=== PATIENT | female | born 1965 | race Caucasian/White ===

== ENCOUNTER 2018-07-08 07:44 | Emergency (ER) | payer OTHER ==
--- OUTSIDE RECORDS SUMMARY | 2018-07-08 07:46 | XMS REPORT | Clinical Summary ---
:1965 Author Organization [facility] Address [address] [place] [address] Care Team Providers Name Role Phone Martinez Givens MD Primary Care Provider Unavailable Allergies Active Allergy Reactions Severity Noted Date Comments Adhesive Tape-Silicones 05/30/2016 Clindamycin GI Intolerance 05/30/2016 Nausea / Vomiting Current Medications Prescription Sig. Disp. Refills Start Date End Date Status DHCODEINE Take 16-320 Active BT/ACETAMINOPHN/CAFF mg by mouth 3 (TREZIX ORAL) (three) times a day. lisinopril TAKE ONE 30 tablet 1 02/05/2017 Active (PRINIVIL,ZESTRIL) 5 TABLET BY mg tablet MOUTH DAILY furosemide (LASIX) Take 1 tablet 30 tablet 1 01/08/2018 Active 40 mg tablet (40 mg total) by mouth daily. metoprolol succinate Take 1 tablet 90 tablet 3 02/12/2018 02/12/2019 Active XL (TOPROL-XL) 100 (100 mg mg 24 hr total) by tabletIndications: mouth daily. Chronic combined systolic and diastolic CHF (congestive heart failure) (HCC) spironolactone Take 1 tablet 90 tablet 3 02/12/2018 02/12/2019 Active (ALDACTONE) 25 MG (25 mg total) tabletIndications: by mouth Chronic combined daily. systolic and diastolic CHF (congestive heart failure) (HCC) spironolactone TAKE 1/2 15 tablet 2 02/05/2017 01/08/2018 Discontinued (ALDACTONE) 25 MG TABLET BY tablet MOUTH DAILY furosemide (LASIX) TAKE ONE 30 tablet 1 02/05/2017 01/08/2018 Discontinued 40 mg tablet TABLET BY MOUTH ONCE DAILY metoprolol succinate TAKE ONE 30 tablet 1 02/05/2017 01/08/2018 Discontinued XL (TOPROL-XL) 50 mg TABLET BY 24 hr tablet MOUTH DAILY spironolactone Take 0.5 15 tablet 2 01/08/2018 02/12/2018 Discontinued (ALDACTONE) 25 MG tablets (12.5 tablet mg total) by mouth daily. metoprolol succinate Take 1 tablet 30 tablet 1 01/08/2018 02/12/2018 Discontinued XL (TOPROL-XL) 50 mg (50 mg total) 24 hr tablet by mouth daily. Active Problems Patient Care Coordination Note No echocardiogram Last Visit - 07/18/2016 HPI: Ms. Grace was recently diagnosed with HF after 6 months of progressive GRANADOS. She was admitted to [facility] 12/23/[address] Obie Buckley consulted me for management of her HF. He did a coronary nika ogram showing no significant CAD, RHC showed normal hemodynamics. She is being evaluated for a breast mass with FNA negative for malignancy but planning on undergoing excisional biopsy due to high radiographic suspicion. She has not been taking her HF medications regularly. Assessment / Plan 1. Combined systolic and diastolic dysfunction - Patient with poor compliance with medications. I reniforced stric compliance with HF medications except for lasix since she is euvolemic without it. NYHA II. Euvolemic. 2. Persistent breast nodularity - Undergoing excisional biopsy. Should have low risk of HF events periprocedurally. No further cardiac testing needed. She describes possible history of pulmonary fibrosis. May need eval prior. 3. Cardiomyopathy - Continue OMT. Problem Noted Date Severe major depression with psychotic features (HCC) 07/03/2017 Essential hypertension 07/03/2017 Chronic combined systolic and diastolic CHF (congestive heart failure) 2016 (HCC) Encounters Date Type Specialty Care Team Description 02/12/2018 Office Visit Cardiology Junior Mak, Chronic combined systolic and diastolic CHF (congestive heart failure) (Primary Dx); Essential hypertension; Severe major depression with psychotic features 01/08/2018 Refill Cardiology Junior Mak, Med Refill after 07/07/2017 Family History Medical History Relation Name Comments Cancer Maternal Aunt Cancer Maternal Grandfather Heart disease Maternal Grandfather Diabetes Maternal Grandmother Cancer Mother Relation Name Status Comments Maternal Aunt Maternal Grandfather Maternal Grandmother Mother Social History Tobacco Use Types Packs/Day Years Used Date Former Smoker Cigarettes 0.25 10 Quit: 12/31/2015 Smokeless Tobacco: Never Used Comments: QUIT-12/2014 Alcohol Use Drinks/Week oz/Week Comments No Sex Assigned at Date Recorded Not on file Last Filed Vital Signs Vital Sign Reading Time Taken Blood Pressure 125/66 02/12/2018 4:39 PM CDT Pulse 97 02/12/2018 4:39 PM CDT Temperature - - Respiratory Rate - - Oxygen Saturation - - Inhaled Oxygen Concentration - - Weight 78 kg (172 lb) 02/12/2018 4:39 PM CDT Height 165.1 cm (5' 5") 02/12/2018 4:39 PM CDT Body Mass Index 28.62 02/12/2018 4:39 PM CDT Plan of Treatment Date Type Specialty Care Team Description 08/27/2018 Office Visit Cardiology Junior Mak MD [address] [address] Health Maintenance Due Date Last Done Comments CERVICAL CANCER SCREENING 1988 COLON CANCER SCREENING 2017 SHINGRIX VACCINE (#1) 2017 INFLUENZA VACCINE 04/24/2018 BREAST CANCER SCREENING 06/07/2018 06/07/2016, 05/10/2016, 05/10/2016 Results Not on fileafter 07/07/2017 Insurance Payer Benefit Plan / Group Subscriber ID Type Phone Address MEDICARE MEDICARE PART A AND B xxxxxxxxxxx Medicare [place], [place]
[2018-07-08 08:08] LABS: Absolute Lymphocytes (CBC) 2.2 K/uL (0.7-4.9); Absolute Monocytes 0.7 K/uL (0.1-1.3); Absolute Neutrophil 6.6 K/uL (1.8-8.0); Basophils % 0.7 % (0-1.3); Eosinophils % 2.2 % (0-4.4); Hematocrit 37.4 % (36.0-45.0); Lymphocytes % 22.4 % (15.3-44.8); MPV 9.5 fL (7.6-11.3); Monocytes % 7.3 % (3.3-12.3); RBC Red Blood Cell Count 4.11 M/uL (3.86-4.86)
[2018-07-08 08:11] LABS: Protime INR 1.1
[2018-07-08] MEDS ORDERED: ENOXAPARIN 80 MG/0.8 ML SQ ONE (08:16)
[2018-07-08] MEDS ORDERED: FENTANYL CITR 100 MCG/2 ML ONE (08:16)
[2018-07-08] MEDS ORDERED: ONDANSETRON 4 MG/2 ML VIAL ONE (08:21)
--- NOTE | 2018-07-08 08:24 | RAD REPORT ---
EXAM DESCRIPTION: RAD - Chest Single View - 07/08/2018 8:13 am CLINICAL HISTORY: Chest pain COMPARISON: November 29 TECHNIQUE: AP portable chest image was obtained 0806 hours . FINDINGS: No focal consolidation or mass. Interstitial markings are prominent, increased over compar kevon. Cardiomegaly is present increased slightly from comparison. Vasculature is mildly prominent. No pneumothorax or large pleural effusion. No acute bone finding. Postsurgical changes are noted to the proximal right humerus. No acute aortic findings suspected. IMPRESSION: CHF/volume overload pattern increased compared to November 29 study.
[2018-07-08 08:29] LABS: Albumin 3.4 g/dL (3.4-5.0); Bilirubin Direct 0.2 mg/dL (0-0.2); Bilirubin Total 0.8 mg/dL (0.2-1.0); Magnesium 2.2 mg/dL (1.8-2.4); Potassium 4.3 mmol/L (3.5-5.1); Protein, Total 7.4 g/dL (6.4-8.2)
[2018-07-08 08:32] LABS: Troponin (Emerg Dept Use Only) 21.7 ng/mL (0.0-0.045)
--- NOTE | 2018-07-08 08:51 | ER ---
Nurse's Notes [facility] Name: Reta Anderson Age: 52 yrs Sex: Female : 1965 Arrival Date: 07/08/2018 Time: 07:48 Bed 5 Private MD: Diagnosis: Chest pain, unspecified;Cardiomyopathy;Non-ST elevation (NSTEMI) myocardial infarction;Unspecified combined systolic (congestive) and diastolic (congestive) heart failure;Hypotension Presentation: 07/08 07:40 Presenting complaint: EMS states: CP x 1 day/described as squeezing/grabbing, c/o sv nausea, stress, SOB, anxiety, stomach bloated/burning. ASA 324 mg PO, Nitro x 1 BP pre 106/72, post 98/62, Fentanyl 75 mcg, 20G R FA, ST w/BBB. c/o right shoulder blade swelling. Pt reports taking Hudson Fri \\T\\ Sat for shoulder pain and has had nausea since then. Transition of care: patient was not received from another setting of care. Onset of symptoms was July 07, 2018 at 14:00. Care prior to arrival: IV initiated. 20 GA, in the right forearm. 07:40 Method Of Arrival: EMS: [facility] sv 07:40 Acuity: CASSANDRA 2 sv 07:55 Risk Assessment: Do you want to hurt yourself or someone else? Patient reports no aa5 desire to harm self or others. 07:56 Initial Sepsis Screen: Does the patient meet any 2 criteria? HR > 90 bpm. Yes Does the sv patient have a suspected source of infection? No. Patient's initial sepsis screen is negative. 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 - Ebola Screening: : No symptoms or risks identified at this time. Screenin:56 Abuse screen: Denies threats or abuse. Denies injuries from another. Nutritional sv screening: No deficits noted. Tuberculosis screening: No symptoms or risk factors identified. Fall Risk None identified. Assessment: 07:45 General: Appears comfortable, Behavior is calm, cooperative, Pt states "I've been aa5 really stressed out because my daughter is moving 8 hours away and the chest pain started yesterday when I was speaking with her over the phone" . Pain: Complains of pain in mid-sternal area, RUQ, and LUQ Pain does not radiate. Pain currently is 5 out of 10 on a pain scale. Quality of pain is described as pressure, Pain began 1 day ago. Is intermittent. Neuro: Level of Consciousness is awake, alert, obeys commands, Oriented to person, place, time, situation. Cardiovascular: Heart tones S1 S2 present External defibrillator noted . Edema is absent. Rhythm is regular. Respiratory: Reports shortness of breath Airway is patent Respiratory effort is even, unlabored, Respiratory pattern is regular, symmetrical, Breath sounds are clear bilaterally. GI: Abdomen is round non-distended, Bowel sounds present X 4 quads. Abd is soft and non tender X 4 quads. Patient currently denies nausea, vomiting. : No signs and/or symptoms were reported regarding the genitourinary system. EENT: No signs and/or symptoms were reported regarding the EENT system. Derm: Skin is pink, warm \\T\\ dry. Musculoskeletal: Range of motion: intact in all extremities. 08:45 Reassessment: Patient and/or family updated on plan of care and expected duration. Pain aa5 level reassessed. Patient is alert, oriented x 3, equal unlabored respirations, skin warm/dry/pink. Pt sitting up in bed at this time. . Pain: Pain currently is 2 out of 10 on a pain scale. 09:30 Reassessment: Patient and/or family updated on plan of care and expected duration. Pain aa5 level reassessed. Patient is alert, oriented x 3, equal unlabored respirations, skin warm/dry/pink. Pain: Pain currently is 3 out of 10 on a pain scale. 09:30 Reassessment: Pt assisted to restroom via wheelchair. . aa5 10:00 Reassessment: Patient and/or family updated on plan of care and expected duration. Pain aa5 level reassessed. Patient is alert, oriented x 3, equal unlabored respirations, skin warm/dry/pink. Pt appears anxious, pt states "it's just family, I just need to stop worrying and start meditating or praying or something". Pt was verbally reassured, pt appears calm at this time. Pt sitting up in bed, call cardenas remains within reach. . Pain: Pain currently is 3 out of 10 on a pain scale. 10:30 Reassessment: Patient and/or family updated on plan of care and expected duration. Pain aa5 level reassessed. Patient is alert, oriented x 3, equal unlabored respirations, skin warm/dry/pink. Pain: Pain currently is 3 out of 10 on a pain scale. Vital Signs: 07:55 Pulse 113; Resp 16; Pulse Ox 97% on R/A; Weight 83.46 kg; Height 5 ft. 5 in. (165.10 sv cm); Pain 5/10; 07:57 BP 96 / 68; Temp 98.0(TE); aa5 08:42 BP 104 / 73; Pulse 102; Resp 14 S; Pulse Ox 95% on R/A; aa5 09:00 BP 100 / 70; Pulse 105; Resp 18 S; Pulse Ox 99% on 2 lpm NC; aa5 09:30 BP 92 / 74; Pulse 103; Resp 14; Pulse Ox 97% on 2 lpm NC; aa5 10:00 BP 94 / 72; Pulse 105; Resp 16 S; Pulse Ox 98% on 2 lpm NC; aa5 10:51 BP 92 / 78; Pulse 108; Resp 16 S; Pulse Ox 98% on 2 lpm NC; aa5 07:55 Body Mass Index 30.62 (83.46 kg, 165.10 cm) sv ED Course: 07:40 alarm security or surveillance monitor on. Pulse ox on. NIBP on. sv 07:40 Maintain EMS IV. Dressing intact. Site clean \\T\\ dry. Gauge \\T\\ site: 20G R FA. sv 07:45 EKG done, by medicine technologist. reviewed by Clifton Whiteside MD. at1 07:48 Patient arrived in ED. tw2 07:50 Clifton Whiteside MD is Attending Physician. kristan 07:50 Patient maintains SpO2 saturation greater than 95% on room air. aa5 07:50 No provider procedures requiring assistance completed. aa5 07:52 Triage completed. sv 07:55 Arm band placed on right wrist. sv 07:55 Initial lab(s) drawn, by me, sent to lab. Inserted saline lock: 22 gauge in left aa5 forearm, using aseptic technique. Blood collected. 07:56 Patient has correct armband on for positive identification. Placed in gown. Bed in low sv position. 08:01 Trudi Connell, RN is Primary Nurse. aa5 08:12 X-ray completed. Portable x-ray completed in exam room. Patient tolerated procedure jb2 well. 08:13 XRAY Chest (1 view) In Process Unspecified. EDMS 11:15 Patient transferred, IV remains in place. aa5 Administered Medications: 08:02 CANCELLED (Physician Discretion): Nitro Drip - (Nitroglycerin 50 mg, D5W 250 ml) IV at aa5 5 mcg/min continuous; titrate until desired hemodynamic response. 08:02 CANCELLED (Physician Discretion): morphine 2 mg IVP once aa5 08:02 CANCELLED (Physician Discretion): Zofran 4 mg IVP once; over 2 minutes aa5 08:02 CANCELLED (Physician Discretion): Lopressor 5 mg IVP once; Hold for SBP <100 or HR <60. aa5 08:02 CANCELLED (Physician Discretion): Lopressor (metoprolol TARTRATE) 50 mg PO once aa5 08:03 CANCELLED (Duplicate Order): Lasix 20 mg IVP once kristan 08:20 Drug: Lovenox 1 mg/kg Route: Sub-Q; Site: right lower abdomen; aa5 08:46 Follow up: Response: No adverse reaction aa5 08:20 Drug: fentaNYL (PF) 25 mcg Route: IVP; Site: right forearm; aa5 08:46 Follow up: Response: No adverse reaction aa5 08:20 Drug: Zofran 4 mg Route: IVP; Site: right forearm; aa5 08:46 Follow up: Response: No adverse reaction aa5 08:55 Drug: Lasix 20 mg Route: IVP; Site: right forearm; aa5 09:00 Follow up: Response: No adverse reaction aa5 10:05 Not Given (Patient Refused): Lopressor 25 mg PO once aa5 Outcome: 08:50 ER care complete, transfer ordered by MD. rushing 11:15 Transferred by ground EMS to [facility], Transfer form completed. aa5 X-rays sent w/ patient. Note: Report given to STEVEN Amado 11:15 Condition: stable 11:15 Instructed on the need for transfer, Demonstrated understanding of instructions. 11:20 Patient left the ED. aa5 Signatures: Dispatcher [employer] EDOpal Nicole, RN RN Clifton Olmstead MD MD cha Buechter, Jesse jb2 Tyler, [place] em1 Trudi Connell RN RN aa5 Sofia Burns, operations agent EKG Tat1 Bernadine Mccann RN RN tw2 Corrections: (The following items were deleted from the chart) 08:25 08:20 fentaNYL (PF) 25 mcg IVP in right antecubital aa5 aa5 08:25 08:20 Zofran 4 mg IVP in right antecubital aa5 aa5 08:34 07:57 BP 96 / 68; aa5 aa5 10:07 09:30 BP 88 / 72; Pulse 103bpm; Resp 14bpm; Pulse Ox 94% RA; em1 aa5 11:33 11:30 Patient left the ED. aa5 aa5
--- NOTE | 2018-07-08 08:51 | EDPHYS ---
Physician Documentation [facility] Name: Reta Anderson Age: 52 yrs Sex: Female : 1965 Arrival Date: 07/08/2018 Time: 07:48 Bed 5 Private MD: ED Physician Clifton Whiteside HPI: 07/08 07:53 This 52 yrs old Female presents to ER via EMS with complaints of Chest Pain > kristan 32 y/o. 07:53 The patient or guardian reports chest pain that is located primarily in the substernal kristan area. Onset: 1 day(s) ago. The pain does not radiate. Associated signs and symptoms: Pertinent positives: shortness of breath. The chest pain is described as dull, a heaviness. Modifying factors: The symptoms are alleviated by nothing. the symptoms are aggravated by nothing. Severity of pain: At its worst the pain was mild moderate in the emergency department the pain is unchanged. 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 - Ebola Screening: : No symptoms or risks identified at this time. ROS: 07:53 Constitutional: Negative for fever, chills, and weight loss, Eyes: Negative for injury, kristan pain, redness, and discharge, ENT: Negative for injury, pain, and discharge, Neck: Negative for injury, pain, and swelling, Respiratory: Negative for shortness of breath, cough, wheezing, and pleuritic chest pain, Abdomen/GI: Negative for abdominal pain, nausea, vomiting, diarrhea, and constipation, Back: Negative for injury and pain, : Negative for injury, bleeding, discharge, and swelling, MS/Extremity: Negative for injury and deformity, Skin: Negative for injury, rash, and discoloration, Neuro: Negative for headache, weakness, numbness, tingling, and seizure, Psych: Negative for depression, anxiety, suicide ideation, homicidal ideation, and hallucinations, Allergy/Immunology: Negative for hives, rash, and allergies, Endocrine: Negative for neck swelling, polydipsia, polyuria, polyphagia, and marked weight changes, Hematologic/Lymphatic: Negative for swollen nodes, abnormal bleeding, and unusual bruising. 07:53 Cardiovascular: Positive for chest pain, of the chest. Exam: 07:53 Constitutional: This is a well developed, well nourished patient who is awake, alert, kristan and in no acute distress. Head/Face: Normocephalic, atraumatic. Eyes: Pupils equal round and reactive to light, extra-ocular motions intact. Lids and lashes normal. Conjunctiva and sclera are non-icteric and not injected. Cornea within normal limits. Periorbital areas with no swelling, redness, or edema. ENT: Nares patent. No nasal discharge, no septal abnormalities noted. Tympanic membranes are normal and external auditory canals are clear. Oropharynx with no redness, swelling, or masses, exudates, or evidence of obstruction, uvula midline. Mucous membranes moist. Neck: Trachea midline, no thyromegaly or masses palpated, and no cervical lymphadenopathy. Supple, full range of motion without nuchal rigidity, or vertebral point tenderness. No Meningismus. Chest/axilla: Normal chest wall appearance and motion. Nontender with no deformity. No lesions are appreciated. Respiratory: Lungs have equal breath sounds bilaterally, clear to auscultation and percussion. No rales, rhonchi or wheezes noted. No increased work of breathing, no retractions or nasal flaring. Abdomen/GI: Soft, non-tender, with normal bowel sounds. No distension or tympany. No guarding or rebound. No evidence of tenderness throughout. Back: No spinal tenderness. No costovertebral tenderness. Full range of motion. Skin: Warm, dry with normal turgor. Normal color with no rashes, no lesions, and no evidence of cellulitis. MS/ Extremity: Pulses equal, no cyanosis. Neurovascular intact. Full, normal range of motion. Neuro: Awake and alert, GCS 15, oriented to person, place, time, and situation. Cranial nerves II-XII grossly intact. Motor strength 5/5 in all extremities. Sensory grossly intact. Cerebellar exam normal. Normal gait. Psych: Awake, alert, with orientation to person, place and time. Behavior, mood, and affect are within normal limits. 07:53 Cardiovascular: Rate: tachycardic, Rhythm: regular, Pulses: Pulses are 4+ in bilateral radial, brachial, femoral, popliteal, posterior tibial and and dorsalis pedis arteries.. Heart sounds: normal, JVD: is noted bilaterally, to 2 cm. Vital Signs: 07:55 Pulse 113; Resp 16; Pulse Ox 97% on R/A; Weight 83.46 kg; Height 5 ft. 5 in. (165.10 sv cm); Pain 5/10; 07:57 BP 96 / 68; Temp 98.0(TE); aa5 08:42 BP 104 / 73; Pulse 102; Resp 14 S; Pulse Ox 95% on R/A; aa5 09:00 BP 100 / 70; Pulse 105; Resp 18 S; Pulse Ox 99% on 2 lpm NC; aa5 09:30 BP 92 / 74; Pulse 103; Resp 14; Pulse Ox 97% on 2 lpm NC; aa5 10:00 BP 94 / 72; Pulse 105; Resp 16 S; Pulse Ox 98% on 2 lpm NC; aa5 10:51 BP 92 / 78; Pulse 108; Resp 16 S; Pulse Ox 98% on 2 lpm NC; aa5 07:55 Body Mass Index 30.62 (83.46 kg, 165.10 cm) sv MDM: 07:51 Patient medically screened. [facility] 07:53 Data reviewed: vital signs, nurses notes, EMS record, lab test result(s), EKG, kristan radiologic studies, plain films. 07/08 07:53 Order name: Basic Metabolic Panel; Complete Time: 08:38 [facility] 07/08 07:53 Order name: CBC with Diff; Complete Time: 08:38 [facility] 07/08 07:53 Order name: LFT's; Complete Time: 08:38 [facility] 07/08 07:53 Order name: Magnesium; Complete Time: 08:38 [facility] 07/08 07:53 Order name: NT PRO-BNP; Complete Time: 08:38 [facility] 07/08 07:53 Order name: PT-INR; Complete Time: 08:38 kristan 07/08 07:53 Order name: Troponin (emerg Dept Use Only); Complete Time: 08:38 [facility] 07/08 07:53 Order name: XRAY Chest (1 view); Complete Time: 08:38 07/08 07:53 Order name: Lipase; Complete Time: 08:38 07/08 07:53 Order name: EKG; Complete Time: 07:54 07/08 07:53 Order name: Cardiac monitoring; Complete Time: 07:55 07/08 07:53 Order name: EKG - Nurse/Tech; Complete Time: 07:55 [facility] 07/08 07:53 Order name: IV Saline Lock; Complete Time: 07:55 [facility] 07/08 07:53 Order name: Labs collected and sent; Complete Time: 08:03 [facility] 07/08 07:53 Order name: O2 Per Protocol; Complete Time: 07:55 [facility] 07/08 07:53 Order name: O2 Sat Monitoring; Complete Time: 07:55 [facility] Administered Medications: 08:02 CANCELLED (Physician Discretion): Nitro Drip - (Nitroglycerin 50 mg, D5W 250 ml) IV at aa5 5 mcg/min continuous; titrate until desired hemodynamic response. 08:02 CANCELLED (Physician Discretion): morphine 2 mg IVP once aa5 08:02 CANCELLED (Physician Discretion): Zofran 4 mg IVP once; over 2 minutes aa5 08:02 CANCELLED (Physician Discretion): Lopressor 5 mg IVP once; Hold for SBP <100 or HR <60. aa5 08:02 CANCELLED (Physician Discretion): Lopressor (metoprolol TARTRATE) 50 mg PO once aa5 08:03 CANCELLED (Duplicate Order): Lasix 20 mg IVP once kristan 08:20 Drug: Lovenox 1 mg/kg Route: Sub-Q; Site: right lower abdomen; aa5 08:46 Follow up: Response: No adverse reaction aa5 08:20 Drug: fentaNYL (PF) 25 mcg Route: IVP; Site: right forearm; aa5 08:46 Follow up: Response: No adverse reaction aa5 08:20 Drug: Zofran 4 mg Route: IVP; Site: right forearm; aa5 08:46 Follow up: Response: No adverse reaction aa5 08:55 Drug: Lasix 20 mg Route: IVP; Site: right forearm; aa5 09:00 Follow up: Response: No adverse reaction aa5 10:05 Not Given (Patient Refused): Lopressor 25 mg PO once aa5 Disposition: 07/08/18 08:50 Transfer ordered to [facility]. Diagnosis are Chest pain, unspecified, Cardiomyopathy, Non-ST elevation (NSTEMI) myocardial infarction, Unspecified combined systolic (congestive) and diastolic (congestive) heart failure, Hypotension. - Reason for transfer: Higher level of care. - Accepting physician is to [facility]. - Condition is Serious. - Problem is new. - Symptoms have improved. Signatures: Dispatcher [employer] EDOpal Nicole RN RN sv Anderson, Corey, MD MD cha Calderon, Audri, RN RN aa5 Corrections: (The following items were deleted from the chart) 08:02 07:53 Nitro Drip - (Nitroglycerin 50 mg, D5W 250 ml) IV at 5 mcg/min continuous; aa5 titrate until desired hemodynamic response. ordered. [facility] 08:02 07:53 morphine 2 mg IVP once ordered. [facility] aa5 08:02 07:53 Zofran 4 mg IVP once; over 2 minutes ordered. [facility] aa5 08:02 07:53 Lopressor 5 mg IVP once; Hold for SBP <100 or HR <60. ordered. [facility] aa5 08:02 07:53 Lopressor (metoprolol TARTRATE) 50 mg PO once ordered. [facility] aa5 08:03 07:56 Lasix 20 mg IVP once ordered. [facility] 11:30 08:50 07/08/2018 08:50 Transfer ordered to [facility]. Diagnosis is aa5 Chest pain, unspecified; Cardiomyopathy; Non-ST elevation (NSTEMI) myocardial infarction; Unspecified combined systolic (congestive) and diastolic (congestive) heart failure; Hypotension. Reason for transfer: Higher level of care. Accepting physician is to [facility]. Condition is Serious. Problem is new. Symptoms have improved. kristan
[2018-07-08] MEDS ORDERED: FUROSEMIDE 20 MG/ 2ML VIAL ONE (09:10)
[2018-07-08] MEDS ORDERED: METOPROLOL TAR 25 MG TAB ONE (09:10)
--- NOTE | 2018-07-08 10:02 | EKG ---
Test Date: 2018-07-08 Test Time: 07:45:35 [employer]: GUERDA MEASUREMENT RESULTS: Intervals: Rate: 111 OK: 126 QRSD: 108 QT: 370 QTc: 503 [place]: P: 27 OK: 126 QRS: -35 T: 102 INTERPRETIVE STATEMENTS: Sinus tachycardia with frequent premature ventricular complexes Possible Left atrial enlargement Left axis deviation Left ventricular hypertrophy ST & T wave abnormality, consider lateral ischemia Abnormal ECG No previous ECG available for comparison Electronically Signed On 07-08-18 10:01:31 CDT by Ander Worthington
[2018-07-09 14:36] VITALS: BP 92/78; TEMP 98; O2SAT 98
== END 2018-07-08 11:30 | disposition short-term general hospital (02) ==
LOC: ER 07:44
DX: I21.4 Non-ST elevation (NSTEMI) myocardial infarction (principal); I50.40 Unspecified combined systolic (congestive) and diastolic (congestive) heart failure; I42.9 Cardiomyopathy, unspecified; I95.9 Hypotension, unspecified; Z88.3 Allergy status to other anti-infective agents
CPT/HCPCS: 36415; 71045; 80048; 80076; 83690; 83735; 83880; 84484; 85025; 85610; 93005; 96372; 96374; 96375; 99285; J1650; J1940; J2405; J3010

== ENCOUNTER 2018-07-22 03:19 | Emergency (ER) | payer OTHER ==
--- OUTSIDE RECORDS SUMMARY | 2018-07-22 03:21 | XMS REPORT | Clinical Summary ---
:1965 Author Organization [facility] Address [address] [place] [address] Care Team Providers Name Role Phone Martinez [...] of progressive GRANADOS. She was admitted to [facility] 12/23/[address] Obie Buckely consulted me for management of her HF. [...] Refill Cardiology Junior Mak, Med Refill after 07/21/2017 Family History Medical History Relation Name Comments [...] 08/27/2018 Office Visit Cardiology Junior Mak MD [id number] [address] Health Maintenance Due Date Last Done Comments CERVICAL CANCER SCREENING 1988 COLON CANCER SCREENING 2017 SHINGRIX VACCINE (#1) 2017 INFLUENZA VACCINE 04/24/2018 BREAST CANCER SCREENING 06/07/2018 06/07/2016, 05/10/2016, 05/10/2016 Results Not on fileafter 07/21/2017 Insurance Payer Benefit Plan / Group Subscriber ID Type Phone Address MEDICARE MEDICARE PART A AND B xxxxxxxxxxx Medicare [place], [place]
--- OUTSIDE RECORDS SUMMARY | 2018-07-22 03:21 | XMS REPORT | Clinical Summary ---
:1965 Author Organization [facility] Address [address] [place] [address] Care Team Providers Name Role Phone Martinez Givens Primary Care Provider Allergies Active Allergy Reactions Severity Noted Date Comments Clindamycin 07/08/2018 Medications Medication Sig Dispensed Refills Start Date End Date Status atorvastatin (LIPITOR) Take 1 tablet 90 tablet 3 07/11/2018 07/11/2019 Active 40 MG tablet (40 mg total) by mouth nightly. furosemide (LASIX) 40 Take 1 tablet 90 tablet 3 07/12/2018 07/12/2019 Active MG tablet (40 mg total) by mouth daily. metoprolol (TOPROL-XL) Take 0.5 45 tablet 3 07/12/2018 07/12/2019 Active 25 MG 24 hr tablet tablets (12.5 mg total) by mouth daily. spironolactone Take 1 tablet 90 tablet 3 07/12/2018 07/12/2019 Active (ALDACTONE) 25 MG (25 mg total) tablet by mouth daily. Active Problems Problem Noted Date Non-ischemic cardiomyopathy 07/08/2018 NSTEMI (non-ST elevated myocardial infarction) 07/08/2018 Anxiety 07/08/2018 Depression 07/08/2018 Acute myopericarditis 07/08/2018 Chronic combined systolic and diastolic CHF, NYHA class 3 07/08/2018 Encounters Date Type Specialty Care Team Description 07/08/2018 - Hospital Encounter Cardiology Pedro Be Anxiety 07/11/2018 MD Santosh 07/08/2018 Orders Only General Internal Medicine after 07/21/2017 Social History Tobacco Use Types Packs/Day Years Used Date Former Smoker Cigarettes Quit: 12/08/2017 Smokeless Tobacco: Never Used Sex Assigned at Date Recorded Not on file Job Start Date Occupation Industry Not on file Not on file Not on file Travel History Travel Start Travel End No recent travel history available. Last Filed Vital Signs Vital Sign Reading Time Taken Blood Pressure 96/51 07/11/2018 11:10 AM CDT Pulse 92 07/11/2018 11:10 AM CDT Temperature 35.9 C (96.7 F) 07/11/2018 11:10 AM CDT Respiratory Rate 20 07/11/2018 11:10 AM CDT Oxygen Saturation 97% 07/11/2018 11:10 AM CDT Inhaled Oxygen Concentration - - Weight 80.8 kg (178 lb 1.6 oz) 07/11/2018 8:17 AM CDT Height 165.1 cm (5' 5") 07/10/2018 10:08 PM CDT Body Mass Index 29.64 07/11/2018 8:17 AM CDT Plan of Treatment Not on file Procedures Procedure Name Priority Date/Time Associated Comments Diagnosis RHYTHM STRIP - SCAN 07/12/2018 11:00 AM CDT CBC W/PLT COUNT & AUTO Routine 07/11/2018 4:10 Results for this DIFFERENTIAL AM CDT procedure are in the results section. APTT Routine 07/11/2018 4:10 Results for this AM CDT procedure are in the results section. MAGNESIUM Routine 07/11/2018 4:10 Results for this AM CDT procedure are in the results section. BASIC METABOLIC PANEL Routine 07/11/2018 4:10 Results for this (7) AM CDT procedure are in the results section. CBC W/PLT COUNT & AUTO Routine 07/11/2018 4:10 Results for this DIFFERENTIAL AM CDT procedure are in the results section. APTT Routine 07/10/2018 12:44 Results for this PM CDT procedure are in the results section. CBC W/PLT COUNT & AUTO Routine 07/10/2018 5:18 Results for this DIFFERENTIAL AM CDT procedure are in the results section. APTT Routine 07/10/2018 5:18 Results for this AM CDT procedure are in the results section. MAGNESIUM Routine 07/10/2018 5:18 Results for this AM CDT procedure are in the results section. BASIC METABOLIC PANEL Routine 07/10/2018 5:18 Results for this (7) AM CDT procedure are in the results section. CBC W/PLT COUNT & AUTO Routine 07/10/2018 5:18 Results for this DIFFERENTIAL AM CDT procedure are in the results section. APTT Routine 07/09/2018 11:34 Results for this PM CDT procedure are in the results section. APTT Routine 07/09/2018 5:06 Results for this PM CDT procedure are in the results section. APTT Routine 07/09/2018 8:56 Results for this AM CDT procedure are in the results section. CBC W/PLT COUNT & AUTO Routine 07/09/2018 4:08 Results for this DIFFERENTIAL AM CDT procedure are in the results section. FERRITIN Routine 07/09/2018 4:08 Results for this AM CDT procedure are in the results section. IRON, TIBC, % SAT. Routine 07/09/2018 4:08 Results for this (WITHOUT FERRITIN) AM CDT procedure are in the results section. LIPID PANEL Routine 07/09/2018 4:08 Results for this AM CDT procedure are in the results section. TROPONIN I Routine 07/09/2018 4:08 Results for this AM CDT procedure are in the results section. MAGNESIUM Routine 07/09/2018 4:08 Results for this AM CDT procedure are in the results section. BASIC METABOLIC PANEL Routine 07/09/2018 4:08 Results for this (7) AM CDT procedure are in the results section. CBC W/PLT COUNT & AUTO Routine 07/09/2018 4:08 Results for this DIFFERENTIAL AM CDT procedure are in the results section. APTT Routine 07/09/2018 1:28 Results for this AM CDT procedure are in the results section. ECHOCARDIOGRAM REPORT - 07/08/2018 5:20 SCAN PM CDT 2D ECHO W/ DOPPLER STAT 07/08/2018 3:42 Results for this (CW/PW/COLOR) PM CDT procedure are in the results section. URINALYSIS W/ Routine 07/08/2018 2:27 Results for this MICROSCOPIC PM CDT procedure are in the results section. CBC W/PLT COUNT & AUTO Routine 07/08/2018 2:12 Results for this DIFFERENTIAL PM CDT procedure are in the results section. CBC W/PLT COUNT & AUTO Routine 07/08/2018 2:12 Results for this DIFFERENTIAL PM CDT procedure are in the results section. HIV-1 ANTIGEN WITH Routine 07/08/2018 2:12 Results for this HIV-1/2 ANTIBODY PM CDT procedure are in the results section. TROPONIN I STAT 07/08/2018 2:12 Results for this PM CDT procedure are in the results section. B-TYPE NATRIURETIC STAT 07/08/2018 2:12 Results for this FACTOR (BNP) PM CDT procedure are in the results section. APTT Routine 07/08/2018 2:12 Results for this PM CDT procedure are in the results section. PROTHROMBIN TIME/INR Routine 07/08/2018 2:12 Results for this PM CDT procedure are in the results section. TOXICOLOGY SCREEN, Routine 07/08/2018 2:12 Results for this SERUM PM CDT procedure are in the results section. TSH/FREE T4 IF Routine 07/08/2018 2:12 Results for this INDICATED PM CDT procedure are in the results section. MAGNESIUM Routine 07/08/2018 2:12 Results for this PM CDT procedure are in the results section. COMPREHENSIVE METABOLIC Routine 07/08/2018 2:12 Results for this PANEL PM CDT procedure are in the results section. XR CHEST 1 VIEW Routine 07/08/2018 1:39 Results for this PORTABLE/BEDSIDE PM CDT procedure are in the results section. ECG 12-LEAD STAT 07/08/2018 1:04 Results for this PM CDT procedure are in the results section. after 07/21/2017 Results RHYTHM STRIP - SCAN (07/12/2018 11:00 AM CDT) Narrative Performed At CBC with platelet count + automated diff (07/11/2018 4:10 AM CDT)Only the most recent of4 resultswithin the time period is included. WBC 8.7 3.5 - 10.5 K/L [facility] RBC 4.13 3.93 - 5.22 M/L [facility] Hemoglobin 12.4 11.2 - 15.7 GM/DL [facility] Hematocrit 39.1 34.1 - 44.9 % [facility] MCV 94.7 79.4 - 94.8 fL [facility] MCH 30.0 25.6 - 32.2 pg [facility] MCHC 31.7 (L) 32.2 - 35.5 GM/DL [facility] RDW 13.9 11.7 - 14.4 % [facility] Platelets 262 150 - 450 K/CU MM [facility] MPV 11.7 9.4 - 12.3 fL [facility] nRBC 0 0 - 0 /100 WBC [facility] % Neutros 49 % [facility] % Lymphs 40 % [facility] % Monos 8 % [facility] % Eos 2 % [facility] % Baso 1 % [facility] # Neutros 4.25 1.56 - 6.13 K/L [facility] # Lymphs 3.50 1.18 - 3.74 K/L [facility] # Monos 0.66 (H) 0.24 - 0.36 K/L [facility] # Eos 0.19 0.04 - 0.36 K/L [facility] # Baso 0.06 0.01 - 0.08 K/L [facility] Immature Granulocytes-Relative 0 0 - 1 % [facility] Specimen Blood Performing Organization Address City/[facility]/Zipcode Phone Number [address] [address] CENTER aPTT (07/11/2018 4:10 AM CDT)Only the most recent of8 resultswithin the time period is included. PTT 90.5 (H) 22.5 - 36.0 seconds [facility] Specimen Blood Performing Organization Address City/[facility]/Zipcode Phone Number [address] [address] CENTER Magnesium (07/11/2018 4:10 AM CDT)Only the most recent of4 resultswithin the time period is included. Magnesium 2.3 1.6 - 2.6 mg/dL [facility] Specimen Blood Performing Organization Address City/[facility]/Zipcode Phone Number [address] [address] [place] Basic Metabolic Panel (07/11/2018 4:10 AM CDT)Only the most recent of3 resultswithin the time period is included. Sodium 138 136 - 145 meq/L [facility] Potassium 4.5 3.5 - 5.1 meq/L [facility] Chloride 107 98 - 107 meq/L [facility] CO2 24 22 - 29 meq/L [facility] BUN 22 (H) 7 - 21 mg/dL [facility] Creatinine 0.96 0.57 - 1.25 mg/dL [facility] Glucose 101 70 - 105 mg/dL [facility] Calcium 8.5 8.4 - 10.2 mg/dL [facility] EGFR 62Comment: ESTIMATED GFR IS mL/min/1.73 sq m [facility] NOT ACCURATE CREATININE [facility] CLEARANCE IN PREDICTING GLOMERULAR FILTRATION RATE. ESTIMATED GFR IS NOT APPLICABLE FOR DIALYSIS PATIENTS. Specimen Blood Performing Organization Address [facility] Phone Number [address] [address] [phone] [place] Iron, TIBC, % sat. (without ferritin) (07/09/2018 4:08 AM CDT) Iron 40 40 - 160 ug/dL [facility] TIBC 398 250 - 450 ug/dL [facility] Iron % Saturation 10 (L) 20 - 55 % [facility] Specimen Blood - Arm, Right Performing Organization Address [facility]/Zipcode Phone Number [phone] [place] [address] [place] Troponin I (07/09/2018 4:08 AM CDT)Only the most recent of2 resultswithin the time period is included. Troponin I 6.35 (HH) 0.00 - 0.03 ng/mL [facility] Specimen Blood - Arm, Right Narrative Performed At [facility] Troponin I (TnI) levels must be interpreted in the context of the presenting symptoms and the clinical findings. Elevated TnI levels indicate myocardial damage, but are not specific for ischemic heart disease. Elevated TnI levels are seen in patients with other cardiac conditions (including myocarditis and congestive heart failure), and slight TnI elevations occur in patients with other conditions, including sepsis, renal failure, acidosis, acute neurological disease, and persistent tachyarrhythmia. Performing Organization Address City/State/[facility] Clinic[facility] Phone Number [address] [address] [place] Ferritin (07/09/2018 4:08 AM CDT) Ferritin 88 5 - 275 ng/mL [facility] Specimen Blood - Arm, Right Performing Organization Address [facility] Phone Number [address] [address] [place] Lipid panel (07/09/2018 4:08 AM CDT) Triglycerides 60 mg/dL [facility] Cholesterol 162 mg/dL [facility] HDL 44 mg/dL [facility] LDL Calculated 106 mg/dL [facility] Specimen Blood - Arm, Right Narrative Performed At [facility] Triglyceride Reference Range: Low Risk <150 [id number] High Risk 200-499 Very High Risk>=500 Cholesterol Reference Range: Low Risk <200 [id number] High Risk>240 HDL Cholesterol Reference Range: Low Risk >=60 High Risk <40 LDL Cholesterol Reference Range: Optimal<100 Near [id number] Very High >=190 Performing Organization Address City/State/Zipcode Phone Number [facility] [address] [place] [address] [phone] CENTER ECHOCARDIOGRAM REPORT - SCAN (07/08/2018 5:20 PM CDT) Narrative Performed At Transthoracic 2D echo w/ doppler (cw/pw/color) (07/08/2018 3:42 PM CDT) Ejection Fraction [facility] Narrative Performed At Transthoracic Echocardiography Report (TTE) [facility] Demographics Patient LAURA,Date of Study 07/08/2018 Blanca RAMIREZ Female Visit [id number] Unknown Number Room Number [id number] Number Date of 1965Referring Vicenta OWENS Noe [facility] Physician 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 Clinical History NSTEMI, Anxiety HGB 12.6 HCT 37.9 % Contrast Medium: Definity. Height: 65 inches Weight: 79.38 kg (175 lbs) BSA: 1.87 m^2 BMI: 29.12 kg/m^2 HR: 105 bpm BP: 90/65 mmHg Summary The left ventricle is chamber size (by vol index) is severely enlarged (male - LVED vol >100ml/m2). Normal LV wall thickness. All of the LV segments are severely hypokinetic . Estimated LVEF by qualitative assessment is severely reduced (<15%) .A 1.5 x 1.0 cm apical thrombus present. LV endocardium is adequately visualized with IV ultrasound enhancing agent. Global RV systolic function is depressed . Estimated peak systolic PA pressure is 40-45 mmHg . Peak systolic pressure may be underestimated; partial TR signal. No evidence of pericardial effusion. Signature Findings Left Ventricle The left ventricle is chamber size (by vol index) is severely enlarged (male - LVED vol >100ml/m2). No rmal LV wall thickness. All of the LV segments ar e severely hypokinetic . Estimated LVEF by qu alitative assessment is severely reduced (<15%) .A 1.5 x 1.0 cm apical thrombus present. LV en docardium is adequately visualized with IV ul trasound enhancing agent. Left AtriumLA size is severely enlarged (>48 ml/m2) . Right VentricleRV chamber size is mildly enlarged . Gl obal RV systolic function is depressed . Right Atrium RA cavity size is normal . Aortic Valve Mild AoV cusp thickening. Mitral Valve Mild MV leaflet thickening. Moderate to severe mi tral regurgitation. Tricuspid ValveA trace of tricuspid regurgitation. Es timated peak systolic PA pressure is 40-45 mmHg . Pe ak systolic pressure may be underestimated; pa rtial TR signal. Pulmonic Valve Normal PV structure and function by limited views an d Doppler. AortaAortic root size (SInus of Valsalva diameter) is no rmal . PericardiumNo evidence of pericardial effusion. IVC/SVC/PA/PV/PleuralThe estimated RA pressure by IVC dynamics 16-20mmHg . Chambers/Structures Left Atrium LA Dimension: 4.02 cmLA Area: 26.06 cm^2 LA Volume: 95.67 ml LA Vol. 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 Clinical History NSTEMI, Anxiety HGB 12.6 HCT 37.9 % Contrast Medium: Definity. Height: 65 inches Weight: 79.38 kg (175 lbs) BSA: 1.87 m^2 BMI: 29.12 kg/m^2 HR: 105 bpm BP: 90/65 mmHg Summary The left ventricle is chamber size (by vol index) is severely enlarged (male - LVED vol >100ml/m2). Normal LV wall thickness. All of the LV segments are severely hypokinetic . Estimated LVEF by qualitative assessment is severely reduced (<15%) .A 1.5 x 1.0 cm apical thrombus present. LV endocardium is adequately visualized with IV ultrasound enhancing agent. Global RV systolic function is depressed . Estimated peak systolic PA pressure is 40-45 mmHg . Peak systolic pressure may be underestimated; partial TR signal. No evidence of pericardial effusion. Signature Findings Left Ventricle The left ventricle is chamber size (by vol index) is severely enlarged (male - LVED vol >100ml/m2). Normal LV wall thickness. All of the LV segments are severely hypokinetic . Estimated LVEF by qualitative assessment is severely reduced (<15%) .A 1.5 x 1.0 cm apical thrombus present. LV endocardium is adequately visualized with IV ultrasound enhancing agent. Left Atrium LA size is severely enlarged (>48 ml/m2) . Right Ventricle RV chamber size is mildly enlarged . Global RV systolic function is depressed . Right Atrium RA cavity size is normal . Aortic Valve Mild AoV cusp thickening. Mitral Valve Mild MV leaflet thickening. Moderate to severe mitral regurgitation. Tricuspid Valve A trace of tricuspid regurgitation. Estimated peak systolic PA pressure is 40-45 mmHg . Peak systolic pressure may be underestimated; partial TR signal. Pulmonic Valve Normal PV structure and function by limited views and Doppler. Aorta Aortic root size (SInus of Valsalva diameter) is normal . Pericardium No evidence of pericardial effusion. IVC/SVC/PA/PV/Pleural The estimated RA pressure by IVC dynamics 16-20mmHg . Chambers/Structures Left Atrium LA Dimension: 4.02 cm LA Area: 26.06 cm^2 LA Volume: 95.67 ml LA Vol. Index: 51 ml/m^2 Left Ventricle LVIDd: 5.88 cm LV Septum Diastolic: 0.96 cm LV PW Diastolic: 1.05 cm LVEDV Deluca's:221.61 ml LVEDVI: 119 ml/m^2 Aorta Ao Root S of Irena.: 3.33 cm Performing Organization Address City/State/[facility] Phone Number [facility] Urinalysis, Routine (07/08/2018 2:27 PM CDT) Color, UA Light Yellow [facility] Clarity, UA Clear [facility] Specific Friedens, UA 1.009 1.001 - 1.035 [facility] pH, UA 5.0 5.0 - 8.0 [facility] Protein, UA Negative Negative [facility] Glucose, UA Negative Negative [facility] Ketones, UA Negative Negative [facility] Bilirubin, UA Negative Negative [facility] Blood, UA Moderate (A) Negative [facility] Nitrite, UA Negative Negative [facility] Leukocytes, UA Negative Negative [facility] Urobilinogen, UA 0.2 0.2 - 1.0 mg/dL [facility] RBC, UA 3 /HPF [facility] WBC, UA 1 /HPF [facility] Bacteria, UA Occasional [facility] Mucus Occasional [facility] Squam Epithel, UA <1 /HPF [facility] Hyaline Casts, UA 2 /LPF [facility] Specimen Source [facility] Specimen Urine Performing Organization Address City/State/Zipcode Phone Number [address] [address] [phone] [place] TSH/T4 if indicated (07/08/2018 2:12 PM CDT) TSH 2.11 0.35 - 4.94 uIU/mL [facility] Specimen Blood Performing Organization Address City/[facility] Phone Number [address] [address] [place] HIV-1 Antigen with HIV-1/2 Antibody (07/08/2018 2:12 PM CDT) HIV-1 Antigen with HIV 1&2 Nonreactive [facility] Specimen Blood Performing Organization Address City/[facility] Phone Number [address] [address] [place] Toxicology screen, serum (07/08/2018 2:12 PM CDT) DRUG TEST, GENERAL see note [facility], Comment: [facility] URINE,[facility] The following compounds were detected: Cotinine (Nicotine Metabolite) Caffeine Methamphetamine Dextrorphan Salicylic Acid For a list of compounds and limits of detection go to: http://education.TeachScape/faq/RLU966 This test was developed and its analytical performance characteristics have been determined by [facility] [place], [place]. It has not been cleared or approved by the U.S. Food and Drug Administration. This assay has been validated pursuant to the CLIA regulations and is used for clinical purposes. ACETONE ([facility]) None Detected [facility] METHANOL([facility]) None Detected [facility] Isopropanol([facility]) None Detected [facility] ETHANOL None Detected [facility] Comment: [facility] Volatile Limit of Detection: 5 mg/dL Specimen Blood Narrative Performed At Performing Lab [facility] [address] [facility], [address] [place] [address] [place], [place] Yasmin Culp MD, PhD Performing Organization Address City/[facility]/Zipcode Phone Number [employer] [facility], [place] [address] [address] [facility] Prothrombin time/INR (07/08/2018 2:12 PM CDT) Protime 14.6 11.7 - 14.7 seconds [facility] INR 1.1 <=5.9 [facility] Specimen Blood Narrative Performed At [facility] RECOMMENDED COUMADIN/WARFARIN INR THERAPY RANGES STANDARD DOSE: 2.0 - 3.0 Includes: PROPHYLAXIS for venous thrombosis, systemic embolization; TREATMENT for venous thrombosis and/or pulmonary embolus. HIGH RISK: Target INR is 2.5-3.5 for patients with mechanical heart valves. Performing Organization Address [facility] Phone Number [phone] [place] [address] [phone] CENTER B-type Natriuretic Factor (BNP) (07/08/2018 2:12 PM CDT) BNP 3,274 (H) 0 - 100 pg/mL [facility] Specimen Blood Performing Organization Address [facility] Phone Number [phone] [place] [address] [phone] CENTER Comprehensive metabolic panel (07/08/2018 2:12 PM CDT) Protein, Total 7.5 6.0 - 8.3 gm/dL [facility] Albumin 4.0 3.5 - 5.0 g/dL [facility] Alkaline Phosphatase 92 40 - 150 U/L [facility] Total Bilirubin 0.9 0.2 - 1.2 mg/dL [facility] Sodium 135 (L) 136 - 145 meq/L [facility] Potassium 3.8 3.5 - 5.1 meq/L [facility] Chloride 103 98 - 107 meq/L [facility] CO2 21 (L) 22 - 29 meq/L [facility] BUN 21 7 - 21 mg/dL [facility] Creatinine 1.02 0.57 - 1.25 mg/dL [facility] Glucose 107 (H) 70 - 105 mg/dL [facility] Calcium 8.8 8.4 - 10.2 mg/dL [facility] AST 91 (H) 5 - 34 U/L [facility] ALT 22 6 - 55 U/L [facility] EGFR 57Comment: ESTIMATED GFR mL/min/1.73 sq m [facility] IS NOT ACCURATE [facility] CREATININE CLEARANCE IN PREDICTING GLOMERULAR FILTRATION RATE. ESTIMATED GFR IS NOT APPLICABLE FOR DIALYSIS PATIENTS. Specimen Blood Performing Organization Address City/State/Zipcode Phone Number [facility] [address] [place] [address] [phone] CENTER XR chest 1 view portable / bedside (07/08/2018 1:39 PM CDT) Narrative Performed At FINAL REPORT [facility] EXAM: Frontal chest radiograph HISTORY PROVIDED: Evaluate for pulmonary edema COMPARISON: None available IMPRESSION: Mild central pulmonary vascular congestion is suspected with bilateral interstitial opacities suggesting mild edema. Right greater than left bibasilar opacities likely represent atelectasis and edema, although pneumonitis should be excluded clinically. No pneumothorax or significant pleural fluid. The cardiac silhouette is enlarged. No acute osseous abnormality. A remote right proximal humeral fracture is seen with surgical hardware in place. Signed: Miguel Snowden MD Report Verified Date/Time:07/08/2018 14:02:57 Reading Location: [facility] Reading Room Procedure Note Interface, External Ris In - 07/08/2018 2:27 PM CDT FINAL REPORT EXAM: Frontal chest radiograph HISTORY PROVIDED: Evaluate for pulmonary edema COMPARISON: None available IMPRESSION: Mild central pulmonary vascular congestion is suspected with bilateral interstitial opacities suggesting mild edema. Right greater than left bibasilar opacities likely represent atelectasis and edema, although pneumonitis should be excluded clinically. No pneumothorax or significant pleural fluid. The cardiac silhouette is enlarged. No acute osseous abnormality. A remote right proximal humeral fracture is seen with surgical hardware in place. Signed: Miguel Snowden MD Report Verified Date/Time: 07/08/2018 14:02:57 Reading Location: [facility] Reading Room Performing Organization Address City/State/Zipcode Phone Number GE RIS ECG 12 lead (07/08/2018 1:04 PM CDT) Narrative Performed At Ventricular Rate 94 BPM GE MUSE Atrial Rate 94 BPM P-R Interval 136 ms QRS Duration 114 ms Q-T Interval 420 ms QTC Calculation(Bazett) 525 ms P [place] 20 degrees R [place] -43 degrees T [place] 85 degrees Normal sinus rhythm Possible Left atrial enlargement Left axis deviation Left ventricular hypertrophy + repolarization changes Nonspecific ST and T wave abnormality Prolonged QT Abnormal ECG No previous ECGs available Confirmed by MD BOWLES YOCHAI ([id number]) on 07/09/2018 6:31:51 AM Procedure Note Interface, External Ris In - 07/09/2018 6:32 AM CDT Ventricular Rate 94 BPM Atrial Rate 94 BPM P-R Interval 136 ms QRS Duration 114 ms Q-T Interval 420 ms QTC Calculation(Bazett) 525 ms P [place] 20 degrees R [place] -43 degrees T [place] 85 degrees Normal sinus rhythm Possible Left atrial enlargement Left axis deviation Left ventricular hypertrophy + repolarization changes Nonspecific ST and T wave abnormality Prolonged QT Abnormal ECG No previous ECGs available Confirmed by MD BOWLES YOCHAI ([id number]) on 07/09/2018 6:31:51 AM Performing Organization Address City/State/Zipcode Phone Number GE MUSE after 07/21/2017 Insurance Payer Benefit Plan / Group Subscriber ID Type Phone Address MEDICARE MEDICARE A B xxxxxxxxxx Medicare
--- OUTSIDE RECORDS SUMMARY | 2018-07-22 03:22 | XMS REPORT ---
:1965 [facility] Address [address] [place] [address] Care Team Providers Name Role Phone MEGHAN GILBERT Unavailable Unavailable Problems This patient has no known problems. Allergies, Adverse Reactions, Alerts This patient has no known allergies or adverse reactions. Medications This patient has no known medications. Results Test Description Test Time Test Comments Text Results Atomic Results Result Comments MAGNESIUM 2018-07-11 05:29:00 Test Item Value Reference Range Comments MAGNESIUM (BEAKER) (test vmbp=865) 2.3 mg/dL 1.6-2.6 BASIC METABOLIC [id number] 05:29:00 Test Item Value Reference Range Comments SODIUM (BEAKER) (test 138 meq/L 136-145 fqcq=847) POTASSIUM (BEAKER) (test 4.5 meq/L 3.5-5.1 cjmz=061) CHLORIDE (BEAKER) (test 107 meq/L 98-107 ibum=841) CO2 (BEAKER) (test 24 meq/L 22-29 uszk=266) BLOOD UREA NITROGEN 22 mg/dL 7-21 (BEAKER) (test joqo=149) CREATININE (BEAKER) (test 0.96 mg/dL 0.57-1.25 gtrw=560) GLUCOSE RANDOM (BEAKER) 101 mg/dL 70-105 (test vupt=878) CALCIUM (BEAKER) (test 8.5 mg/dL 8.4-10.2 tenq=289) EGFR (BEAKER) (test 62 mL/min/1.73 sq m ESTIMATED GFR IS NOT ttta=6251) ACCURATE CREATININE CLEARANCE IN PREDICTING GLOMERULAR FILTRATION RATE. ESTIMATED GFR IS NOT APPLICABLE FOR DIALYSIS PATIENTS. [id number] 04:51:00 Test Item Value Reference Range Comments PARTIAL THROMBOPLASTIN TIME (BEAKER) (test 90.5 seconds 22.5-36.0 mkrt=584) CBC W/PLT COUNT & AUTO [id number] 04:43:00 Test Item Value Reference Range Comments WHITE BLOOD CELL COUNT (BEAKER) (test suab=531) 8.7 K/ L 3.5-10.5 RED BLOOD CELL COUNT (BEAKER) (test wtsl=116) 4.13 M/ L 3.93-5.22 HEMOGLOBIN (BEAKER) (test azsa=996) 12.4 GM/DL 11.2-15.7 HEMATOCRIT (BEAKER) (test pfxr=583) 39.1 % 34.1-44.9 MEAN CORPUSCULAR VOLUME (BEAKER) (test yavi=379) 94.7 fL 79.4-94.8 MEAN CORPUSCULAR HEMOGLOBIN (BEAKER) (test 30.0 pg 25.6-32.2 ifzy=054) MEAN CORPUSCULAR HEMOGLOBIN CONC (BEAKER) (test 31.7 GM/DL 32.2-35.5 hewi=381) RED CELL DISTRIBUTION WIDTH (BEAKER) (test 13.9 % 11.7-14.4 bast=109) PLATELET COUNT (BEAKER) (test ypnz=110) 262 K/CU MM 150-450 MEAN PLATELET VOLUME (BEAKER) (test vlml=783) 11.7 fL 9.4-12.3 NUCLEATED RED BLOOD CELLS (BEAKER) (test 0 /100 WBC 0-0 hiln=721) NEUTROPHILS RELATIVE PERCENT (BEAKER) (test 49 % kllg=868) LYMPHOCYTES RELATIVE PERCENT (BEAKER) (test 40 % lhgv=734) MONOCYTES RELATIVE PERCENT (BEAKER) (test 8 % jcfc=056) EOSINOPHILS RELATIVE PERCENT (BEAKER) (test 2 % szqm=929) BASOPHILS RELATIVE PERCENT (BEAKER) (test 1 % ynrm=047) NEUTROPHILS ABSOLUTE COUNT (BEAKER) (test 4.25 K/ L 1.56-6.13 rmvy=789) LYMPHOCYTES ABSOLUTE COUNT (BEAKER) (test 3.50 K/ L 1.18-3.74 pozo=393) MONOCYTES ABSOLUTE COUNT (BEAKER) (test 0.66 K/ L 0.24-0.36 bcvw=020) EOSINOPHILS ABSOLUTE COUNT (BEAKER) (test 0.19 K/ L 0.04-0.36 phhi=757) BASOPHILS ABSOLUTE COUNT (BEAKER) (test 0.06 K/ L 0.01-0.08 zvzb=559) IMMATURE GRANULOCYTES-RELATIVE PERCENT (BEAKER) 0 % 0-1 (test twcw=3949) [id number] 13:05:00 Test Item Value Reference Range Comments PARTIAL THROMBOPLASTIN TIME (BEAKER) (test 83.7 seconds 22.5-36.0 esfx=650) [id number] 06:08:00 Test Item Value Reference Range Comments MAGNESIUM (BEAKER) (test fxhx=164) 2.4 mg/dL 1.6-2.6 BASIC METABOLIC [id number] 06:08:00 Test Item Value Reference Range Comments SODIUM (BEAKER) (test 138 meq/L 136-145 ivoz=792) POTASSIUM (BEAKER) (test 4.2 meq/L 3.5-5.1 fjha=551) CHLORIDE (BEAKER) (test 107 meq/L 98-107 fokc=627) CO2 (BEAKER) (test 25 meq/L 22-29 sfsh=781) BLOOD UREA NITROGEN 24 mg/dL 7-21 (BEAKER) (test vvgw=040) CREATININE (BEAKER) (test 0.85 mg/dL 0.57-1.25 olbh=366) GLUCOSE RANDOM (BEAKER) 145 mg/dL 70-105 (test hamt=364) CALCIUM (BEAKER) (test 8.3 mg/dL 8.4-10.2 gktu=300) EGFR (BEAKER) (test 71 mL/min/1.73 sq m ESTIMATED GFR IS NOT saoo=8886) ACCURATE CREATININE CLEARANCE IN PREDICTING GLOMERULAR FILTRATION RATE. ESTIMATED GFR IS NOT APPLICABLE FOR DIALYSIS PATIENTS. [id number] 05:54:00 Test Item Value Reference Range Comments PARTIAL THROMBOPLASTIN TIME (BEAKER) (test 74.6 seconds 22.5-36.0 vhtn=686) CBC W/PLT COUNT & AUTO [id number] 05:39:00 Test Item Value Reference Range Comments WHITE BLOOD CELL COUNT (BEAKER) (test tano=078) 13.8 K/ L 3.5-10.5 RED BLOOD CELL COUNT (BEAKER) (test vjzn=433) 3.97 M/ L 3.93-5.22 HEMOGLOBIN (BEAKER) (test sbpz=421) 12.0 GM/DL 11.2-15.7 HEMATOCRIT (BEAKER) (test ktyu=212) 36.8 % 34.1-44.9 MEAN CORPUSCULAR VOLUME (BEAKER) (test dqih=342) 92.7 fL 79.4-94.8 MEAN CORPUSCULAR HEMOGLOBIN (BEAKER) (test 30.2 pg 25.6-32.2 lcgn=001) MEAN CORPUSCULAR HEMOGLOBIN CONC (BEAKER) (test 32.6 GM/DL 32.2-35.5 flsl=387) RED CELL DISTRIBUTION WIDTH (BEAKER) (test 13.6 % 11.7-14.4 nhix=820) PLATELET COUNT (BEAKER) (test joiy=378) 250 K/CU MM 150-450 MEAN PLATELET VOLUME (BEAKER) (test oviw=562) 11.2 fL 9.4-12.3 NUCLEATED RED BLOOD CELLS (BEAKER) (test 0 /100 WBC 0-0 bsel=167) NEUTROPHILS RELATIVE PERCENT (BEAKER) (test 81 % dvhh=207) LYMPHOCYTES RELATIVE PERCENT (BEAKER) (test 14 % nghr=111) MONOCYTES RELATIVE PERCENT (BEAKER) (test 4 % vwrd=611) EOSINOPHILS RELATIVE PERCENT (BEAKER) (test 0 % lzgh=674) BASOPHILS RELATIVE PERCENT (BEAKER) (test 0 % ykzc=771) NEUTROPHILS ABSOLUTE COUNT (BEAKER) (test 11.16 K/ L 1.56-6.13 ndkn=360) LYMPHOCYTES ABSOLUTE COUNT (BEAKER) (test 1.87 K/ L 1.18-3.74 kjht=495) MONOCYTES ABSOLUTE COUNT (BEAKER) (test 0.61 K/ L 0.24-0.36 ceeh=462) EOSINOPHILS ABSOLUTE COUNT (BEAKER) (test 0.04 K/ L 0.04-0.36 svoh=085) BASOPHILS ABSOLUTE COUNT (BEAKER) (test 0.02 K/ L 0.01-0.08 yipu=241) IMMATURE GRANULOCYTES-RELATIVE PERCENT (BEAKER) 0 % 0-1 (test iyte=1622) [id number] 00:05:00 Test Item Value Reference Range Comments PARTIAL THROMBOPLASTIN TIME (BEAKER) (test 46.2 seconds 22.5-36.0 oegz=391) [id number] 17:43:00 Test Item Value Reference Range Comments PARTIAL THROMBOPLASTIN TIME (BEAKER) (test 57.0 seconds 22.5-36.0 gmzs=240) [id number] 09:08:00 Test Item Value Reference Range Comments PARTIAL THROMBOPLASTIN TIME (BEAKER) (test 44.5 seconds 22.5-36.0 cxsz=625) [id number] 05:33:00 Test Item Value Reference Range Comments FERRITIN (BEAKER) (test uoqe=775) 88 ng/mL 5-275 TROPONIN [id number] 05:19:00 Test Item Value Reference Range Comments TROPONIN I (BEAKER) (test hixi=364) 6.35 ng/mL 0.00-0.03 Troponin I (TnI) levels must be interpreted [...] failure, acidosis, acute neurological disease, and persistent tachyarrhythmia.[id number] 04:57:00 Test Item Value Reference Range Comments MAGNESIUM (BEAKER) (test ktxq=804) 2.5 mg/dL 1.6-2.6 BASIC METABOLIC [id number] 04:57:00 Test Item Value Reference Range Comments SODIUM (BEAKER) (test 137 meq/L 136-145 shye=206) POTASSIUM (BEAKER) (test 4.2 meq/L 3.5-5.1 xetl=506) CHLORIDE (BEAKER) (test 105 meq/L 98-107 bnkr=975) CO2 (BEAKER) (test 23 meq/L 22-29 rdre=944) BLOOD UREA NITROGEN 20 mg/dL 7-21 (BEAKER) (test tegt=003) CREATININE (BEAKER) (test 0.82 mg/dL 0.57-1.25 nvej=930) GLUCOSE RANDOM (BEAKER) 158 mg/dL 70-105 (test hzqr=963) CALCIUM (BEAKER) (test 8.7 mg/dL 8.4-10.2 letc=746) EGFR (BEAKER) (test 74 mL/min/1.73 sq m ESTIMATED GFR IS NOT dblw=2025) ACCURATE CREATININE CLEARANCE IN PREDICTING GLOMERULAR FILTRATION RATE. ESTIMATED GFR IS NOT APPLICABLE FOR DIALYSIS PATIENTS. LIPID [id number] 04:57:00 Test Item Value Reference Range Comments TRIGLYCERIDES (BEAKER) (test nsyx=979) 60 mg/dL CHOLESTEROL (BEAKER) (test rial=329) 162 mg/dL HDL CHOLESTEROL (BEAKER) (test ovia=842) 44 mg/dL LDL CHOLESTEROL CALCULATED (BEAKER) (test 106 mg/dL urxo=877) Triglyceride Reference Range: Low Risk <150 Borderline 150- 199 High Risk 200-499 Very High Risk >=500Cholesterol Reference Range: Low Risk <200 Borderline 200-239 High Risk > 240HDL Cholesterol Reference Range: Low Risk >=60 High Risk <40LDL Cholesterol Reference Range: Optimal <100 Near Optimal 100-129 Borderline 130-159 High 160-189 Very High >=190IRON, TIBC, % SAT. (WITHOUT FERRITIN)2018-07-09 04:55:00 Test Item Value Reference Range Comments IRON (BEAKER) (test vxly=234) 40 ug/dL 40-160 TOTAL IRON BINDING CAPACITY (BEAKER) (test 398 ug/dL 250-450 wnoo=696) IRON % SATURATION (2) (BEAKER) (test qppg=2565) 10 % 20-55 CBC W/PLT COUNT & AUTO [id number] 04:43:00 Test Item Value Reference Range Comments WHITE BLOOD CELL COUNT (BEAKER) (test mdtk=136) 5.8 K/ L 3.5-10.5 RED BLOOD CELL COUNT (BEAKER) (test ymtp=341) 4.18 M/ L 3.93-5.22 HEMOGLOBIN (BEAKER) (test ohpe=827) 12.7 GM/DL 11.2-15.7 HEMATOCRIT (BEAKER) (test rndb=355) 38.4 % 34.1-44.9 MEAN CORPUSCULAR VOLUME (BEAKER) (test glmn=048) 91.9 fL 79.4-94.8 MEAN CORPUSCULAR HEMOGLOBIN (BEAKER) (test 30.4 pg 25.6-32.2 foyq=431) MEAN CORPUSCULAR HEMOGLOBIN CONC (BEAKER) (test 33.1 GM/DL 32.2-35.5 maqw=226) RED CELL DISTRIBUTION WIDTH (BEAKER) (test 13.4 % 11.7-14.4 tdvh=283) PLATELET COUNT (BEAKER) (test xezf=019) 234 K/CU MM 150-450 MEAN PLATELET VOLUME (BEAKER) (test eoxk=359) 11.5 fL 9.4-12.3 NUCLEATED RED BLOOD CELLS (BEAKER) (test 0 /100 WBC 0-0 isgn=979) NEUTROPHILS RELATIVE PERCENT (BEAKER) (test 87 % mxqx=877) LYMPHOCYTES RELATIVE PERCENT (BEAKER) (test 10 % umbj=117) MONOCYTES RELATIVE PERCENT (BEAKER) (test 2 % unwp=978) EOSINOPHILS RELATIVE PERCENT (BEAKER) (test 0 % wamm=601) BASOPHILS RELATIVE PERCENT (BEAKER) (test 0 % klrh=311) NEUTROPHILS ABSOLUTE COUNT (BEAKER) (test 5.09 K/ L 1.56-6.13 akuq=945) LYMPHOCYTES ABSOLUTE COUNT (BEAKER) (test 0.58 K/ L 1.18-3.74 kqur=833) MONOCYTES ABSOLUTE COUNT (BEAKER) (test 0.11 K/ L 0.24-0.36 uupj=799) EOSINOPHILS ABSOLUTE COUNT (BEAKER) (test 0.01 K/ L 0.04-0.36 ajih=490) BASOPHILS ABSOLUTE COUNT (BEAKER) (test 0.01 K/ L 0.01-0.08 uktv=949) IMMATURE GRANULOCYTES-RELATIVE PERCENT (BEAKER) 0 % 0-1 (test pnpn=7701) [id number] 01:46:00 Test Item Value Reference Range Comments PARTIAL THROMBOPLASTIN TIME (BEAKER) (test 39.6 seconds 22.5-36.0 mnob=353) TSH/FREE T4 IF [id number] 15:20:00 Test Item Value Reference Range Comments THYROID STIMULATING HORMONE (BEAKER) (test 2.11 uIU/mL 0.35-4.94 bbjc=206) HIV-1 ANTIGEN WITH HIV-1/2 [id number] 15:20:00 Test Item Value Reference Range Comments HIV-1 ANTIGEN WITH HIV 1\T\2 ANTIBODY (2) Nonreactive Nonreactive (BEAKER) (test mtra=5999) TROPONIN [id number] 15:14:00 Test Item Value Reference Range Comments TROPONIN I (BEAKER) (test tbbr=318) 18.70 ng/mL 0.00-0.03 Troponin I (TnI) levels must be interpreted [...] failure, acidosis, acute neurological disease, and persistent tachyarrhythmia.URINALYSIS W/ [id number] 15: 11:00 Test Item Value Reference Range Comments COLOR (BEAKER) (test lnez=333) Light Yellow CLARITY (BEAKER) (test opji=662) Clear SPECIFIC GRAVITY UA (BEAKER) (test topt=239) 1.009 1.001-1.035 PH UA (BEAKER) (test aftt=858) 5.0 5.0-8.0 PROTEIN UA (BEAKER) (test wgap=348) Negative Negative GLUCOSE UA (BEAKER) (test zuyn=736) Negative Negative KETONES UA (BEAKER) (test egyx=882) Negative Negative BILIRUBIN UA (BEAKER) (test wkvc=630) Negative Negative BLOOD UA (BEAKER) (test sbgw=598) Moderate Negative NITRITE UA (BEAKER) (test odhq=219) Negative Negative LEUKOCYTE ESTERASE UA (BEAKER) (test wyrv=221) Negative Negative UROBILINOGEN UA (BEAKER) (test iadp=955) 0.2 mg/dL 0.2-1.0 RBC UA (BEAKER) (test ptbp=775) 3 /HPF WBC UA (BEAKER) (test ahju=364) 1 /HPF BACTERIA (BEAKER) (test zpzw=502) Occasional MUCUS (BEAKER) (test uwpn=1630) Occasional SQUAMOUS EPITHELIAL (BEAKER) (test btas=795) < /HPF HYALINE CASTS (BEAKER) (test xxvx=988) 2 /LPF SOURCE(BEAKER) (test fqgf=9999) B-TYPE NATRIURETIC FACTOR (BNP)2018-07-08 15:05:00 Test Item Value Reference Range Comments B-TYPE NATRIURETIC PEPTIDE (BEAKER) (test 3274 pg/mL 0-100 ebbt=553) [id number] 15:03:00 Test Item Value Reference Range Comments MAGNESIUM (BEAKER) (test vzka=142) 2.0 mg/dL 1.6-2.6 COMPREHENSIVE METABOLIC [id number] 15:03:00 Test Item Value Reference Range Comments TOTAL PROTEIN (BEAKER) 7.5 gm/dL 6.0-8.3 (test pilx=073) ALBUMIN (BEAKER) (test 4.0 g/dL 3.5-5.0 gryo=8293) ALKALINE PHOSPHATASE 92 U/L 40-150 (BEAKER) (test rxwq=709) BILIRUBIN TOTAL (BEAKER) 0.9 mg/dL 0.2-1.2 (test xhaz=880) SODIUM (BEAKER) (test 135 meq/L 136-145 aivy=241) POTASSIUM (BEAKER) (test 3.8 meq/L 3.5-5.1 kmnd=857) CHLORIDE (BEAKER) (test 103 meq/L 98-107 izbf=958) CO2 (BEAKER) (test 21 meq/L 22-29 tutn=271) BLOOD UREA NITROGEN 21 mg/dL 7-21 (BEAKER) (test qauy=608) CREATININE (BEAKER) (test 1.02 mg/dL 0.57-1.25 nlpx=916) GLUCOSE RANDOM (BEAKER) 107 mg/dL 70-105 (test yzbb=677) CALCIUM (BEAKER) (test 8.8 mg/dL 8.4-10.2 ztjp=349) AST (SGOT) (BEAKER) (test 91 U/L 5-34 ight=006) ALT (SGPT) (BEAKER) (test 22 U/L 6-55 omuv=859) EGFR (BEAKER) (test 57 mL/min/1.73 sq m ESTIMATED GFR IS NOT mmcq=7836) ACCURATE CREATININE CLEARANCE IN PREDICTING GLOMERULAR FILTRATION RATE. ESTIMATED GFR IS NOT APPLICABLE FOR DIALYSIS PATIENTS. [id number] 14:45:00 Test Item Value Reference Range Comments PARTIAL THROMBOPLASTIN TIME (BEAKER) (test 33.7 seconds 22.5-36.0 nhsd=844) PROTHROMBIN [id number] 14:44:00 Test Item Value Reference Range Comments PROTIME (BEAKER) (test vabl=382) 14.6 seconds 11.7-14.7 INR (BEAKER) (test mkaf=897) 1.1 <=5.9 RECOMMENDED COUMADIN/WARFARIN INR THERAPY RANGESSTANDARD DOSE: 2.0 - 3.0 Includes: PROPHYLAXIS forvenous thrombosis, systemic embolization; TREATMENT for venous thrombosis and/or pulmonary embolus.HIGH RISK: Target INR is 2.5-3.5 for patients with mechanical heart valves.CBC W/PLT COUNT & AUTO [id number] 14:36:00 Test Item Value Reference Range Comments WHITE BLOOD CELL COUNT (BEAKER) (test gkox=409) 8.5 K/ L 3.5-10.5 RED BLOOD CELL COUNT (BEAKER) (test oeye=246) 4.13 M/ L 3.93-5.22 HEMOGLOBIN (BEAKER) (test dueo=618) 12.6 GM/DL 11.2-15.7 HEMATOCRIT (BEAKER) (test ojnd=164) 37.9 % 34.1-44.9 MEAN CORPUSCULAR VOLUME (BEAKER) (test xqup=159) 91.8 fL 79.4-94.8 MEAN CORPUSCULAR HEMOGLOBIN (BEAKER) (test 30.5 pg 25.6-32.2 qqct=812) MEAN CORPUSCULAR HEMOGLOBIN CONC (BEAKER) (test 33.2 GM/DL 32.2-35.5 tatk=932) RED CELL DISTRIBUTION WIDTH (BEAKER) (test 13.5 % 11.7-14.4 rlql=219) PLATELET COUNT (BEAKER) (test wdbi=931) 248 K/CU MM 150-450 MEAN PLATELET VOLUME (BEAKER) (test vsgk=509) 11.1 fL 9.4-12.3 NUCLEATED RED BLOOD CELLS (BEAKER) (test 0 /100 WBC 0-0 dhkz=001) NEUTROPHILS RELATIVE PERCENT (BEAKER) (test 59 % jggz=549) LYMPHOCYTES RELATIVE PERCENT (BEAKER) (test 30 % iqmr=799) MONOCYTES RELATIVE PERCENT (BEAKER) (test 7 % wlkc=282) EOSINOPHILS RELATIVE PERCENT (BEAKER) (test 3 % uupc=036) BASOPHILS RELATIVE PERCENT (BEAKER) (test 1 % pmsc=649) NEUTROPHILS ABSOLUTE COUNT (BEAKER) (test 5.05 K/ L 1.56-6.13 xsss=316) LYMPHOCYTES ABSOLUTE COUNT (BEAKER) (test 2.57 K/ L 1.18-3.74 iprg=731) MONOCYTES ABSOLUTE COUNT (BEAKER) (test 0.58 K/ L 0.24-0.36 zhat=403) EOSINOPHILS ABSOLUTE COUNT (BEAKER) (test 0.24 K/ L 0.04-0.36 wnzr=637) BASOPHILS ABSOLUTE COUNT (BEAKER) (test 0.06 K/ L 0.01-0.08 xiix=960) IMMATURE GRANULOCYTES-RELATIVE PERCENT (BEAKER) 0 % 0-1 (test qscr=0197) RAD, CHEST, 1 VIEW, NON [id number] 14:02:00Reason for exam:->eval for pulmonary edemaIs the patient ?->UnknownShould this be performed at the bedside?->YesFINAL REPORT EXAM: Frontal chest radiograph HISTORY PROVIDED: Evaluate for pulmonary edema COMPARISON: None available IMPRESSION:Mild central pulmonary vascular congestion is suspected with bilateral interstitial opacities suggesting mild edema. Right greater than left bibasilaropacities likely represent atelectasis and edema, although pneumonitis should be excluded clinically. No pneumothorax or significant pleural fluid. The cardiac silhouette is enlarged. No acute osseousabnormality. A remote right proximal humeral fracture is seen with surgical hardware in place. Signed: Miguel Snowden MDReport Verified Date/ Time: 07/08/2018 14:02:57 Reading Location: [facility] Room
[2018-07-22 04:03] LABS: Protime INR 1.06
[2018-07-22 04:04] LABS: Absolute Lymphocytes (CBC) 1.5 K/uL (0.7-4.9); Absolute Monocytes 0.5 K/uL (0.1-1.3); Absolute Neutrophil 7.7 K/uL (1.8-8.0); Basophils % 0.9 % (0-1.3); Eosinophils % 1.9 % (0-4.4); Hematocrit 36.2 % (36.0-45.0); Lymphocytes % 15.2 % (15.3-44.8); MCH 31.1 pg (27.0-35.0); MCV 91.5 fL (80-100); Monocytes % 5.1 % (3.3-12.3); RBC Red Blood Cell Count 3.95 M/uL (3.86-4.86)
[2018-07-22 04:25] LABS: Bilirubin Direct 0.1 mg/dL (0-0.2); Bilirubin Total 0.4 mg/dL (0.2-1.0); Potassium 3.9 mmol/L (3.5-5.1); Protein, Total 6.9 g/dL (6.4-8.2); Troponin (Emerg Dept Use Only) 0.11 ng/mL (0.0-0.045)
[2018-07-22 04:34] LABS: Urine Blood TRACE (NEG); Urine Glucose NEGATIVE (NEG); Urine Protein NEGATIVE (NEG); Urine pH 5.5 (5.0-7.0)
[2018-07-22] MEDS ORDERED: FUROSEMIDE 40 MG/4 ML VIAL ONE (05:13)
--- NOTE | 2018-07-22 05:54 | ER ---
Nurse's Notes [facility] Name: Reta Anderson Age: 52 yrs Sex: Female : 1965 Arrival Date: 07/22/2018 Time: 03:28 Bed 17 Private MD: Diagnosis: Combined systolic (congestive) and diastolic (congestive) heart failure;Non-ST elevation (NSTEMI) myocardial infarction Presentation: 07/22 03:29 Presenting complaint: EMS states: "pt is reporting a lot shortness of breath. she was jd3 here recently and was transferred out for a non-stemi, pt thinks that her chest pain and shortness of breath are more anxiety related, but she has an extensive cardiac history.". Transition of care: patient was not received from another setting of care. Onset of symptoms was July 21, 2018. Risk Assessment: Do you want to hurt yourself or someone else? Patient reports no desire to harm self or others. Initial Sepsis Screen: Does the patient meet any 2 criteria? HR > 90 bpm. No. Patient's initial sepsis screen is negative. Does the patient have a suspected source of infection? No. Patient's initial sepsis screen is negative. Care prior to arrival: None. 03:29 Method Of Arrival: EMS: [facility] jd3 03:29 Acuity: CASSANDRA 2 jd3 PROGRAM ADVISOR: 03:34 LMP N/A - tubal ligation jd3 Historical: - Allergies: 03:34 Clindamycin; jd3 - Home Meds: 03:34 Lasix Oral [Active]; lisinopril Oral [Active]; Metoprolol Tartrate Oral [Active]; Pt jd3 states "I don't take any of my medicines except for Lasix and Spironolactone as needed" [Active]; Spironolactone Oral [Active]; Trezix Oral [Active]; - PMHx: 03:34 cardiomyopathy; CHF; EF 16%; gastric ulcers; Grand mal seizure; Myocardial infarction; jd3 pulmonary fibrosis; PVCs; - PSHx: 03:34 right shoulder; Tubal ligation; ; jd3 - Immunization history:: Adult Immunizations up to date, Flu vaccine is up to date. - Social history:: Smoking status: Patient/guardian denies using tobacco, the patient reports quitting approximately 1 years ago. - Ebola Screening: : Patient negative for fever greater than or equal to 101.5 degrees Fahrenheit, and additional compatible Ebola Virus Disease symptoms. Screenin:39 Abuse screen: Denies threats or abuse. Nutritional screening: No deficits noted. jd3 Tuberculosis screening: No symptoms or risk factors identified. Fall Risk IV access (20 points). Ambulatory Aid- None/Bed Rest/Nurse Assist (0 pts). Gait- Weak (10 pts.). Mental Status- Oriented to own ability (0 pts). Total Davison Fall Scale indicates Low Risk Score (25-44 pts). Fall prevention measures have been instituted. Side Rails Up X 2 Placed close to Nursing Station Frequent Obs/Assesments occuring Family Present and informed to notify staff if they need to leave bedside. Assessment: 03:37 General: Appears uncomfortable, Behavior is cooperative, anxious. Pain: Complains of jd3 pain in chest Pain currently is 5 out of 10 on a pain scale. Quality of pain is described as sharp. Neuro: Level of Consciousness is awake, alert, obeys commands, Oriented to person, place, time, situation, Appropriate for age. Cardiovascular: Heart tones S1 S2 present Capillary refill < 3 seconds Patient's skin is warm and dry. Rhythm is sinus tachycardia. Respiratory: Reports shortness of breath at rest Airway is patent Respiratory effort is even, Respiratory pattern is regular, tachypnea Breath sounds are diminished bilaterally. GI: No signs and/or symptoms were reported involving the gastrointestinal system. : No signs and/or symptoms were reported regarding the genitourinary system. EENT: No signs and/or symptoms were reported regarding the EENT system. Derm: Skin is intact, Skin is dry, Skin is normal, Skin temperature is warm. Musculoskeletal: Circulation, motion, and sensation intact. Range of motion: intact in all extremities. 04:30 Reassessment: Patient appears in no apparent distress at this time. No changes from jd3 previously documented assessment. Patient and/or family updated on plan of care and expected duration. Pain level reassessed. Patient is alert, oriented x 3, equal unlabored respirations, skin warm/dry/pink. 05:28 Reassessment: Patient appears in no apparent distress at this time. No changes from jd3 previously documented assessment. Patient and/or family updated on plan of care and expected duration. Pain level reassessed. Patient is alert, oriented x 3, equal unlabored respirations, skin warm/dry/pink. 06:30 Reassessment: Patient appears in no apparent distress at this time. No changes from jd3 previously documented assessment. Patient and/or family updated on plan of care and expected duration. Pain level reassessed. Patient is alert, oriented x 3, equal unlabored respirations, skin warm/dry/pink. 06:39 Reassessment: report given to Shnaita HARRIS at [facility]. jd3 Vital Signs: 03:34 BP 118 / 82; Pulse 110; Resp 23 S; Temp 98.0(O); Pulse Ox 95% on R/A; Weight 81.65 kg jd3 (R); Height 5 ft. 5 in. (165.10 cm) (R); Pain 5/10; 04:30 BP 102 / 83; Pulse 101; Resp 21 S; Pulse Ox 94% on R/A; jd3 05:27 BP 109 / 82; Pulse 94; Resp 21 S; Pulse Ox 95% on R/A; jd3 06:30 BP 101 / 73; Pulse 93; Resp 20 S; Pulse Ox 95% on R/A; jd3 03:34 Body Mass Index 29.95 (81.65 kg, 165.10 cm) jd3 ED Course: 03:28 Patient arrived in ED. jd3 03:29 Loki Chang RN is Primary Nurse. jd3 03:30 Inserted saline lock: 20 gauge in right antecubital area, using aseptic technique. cc3 Blood collected. inserted by technical programs manager Rajesh. 03:32 Triage completed. jd3 03:37 Arm band placed on. EKG completed in triage. Results shown to MD. jd3 03:39 Patient has correct armband on for positive identification. Placed in gown. Bed in low jd3 position. Call light in reach. Side rails up X2. Adult w/ patient. 03:44 Earl Bowser MD is Attending Physician. tw4 04:01 X-ray completed. Portable x-ray completed in exam room. Patient tolerated procedure kw well. 04:02 XRAY Chest (1 view) In Process Unspecified. EDMS 06:46 No provider procedures requiring assistance completed. Patient transferred, IV remains jd3 in place. 07:02 Report given to Daniela HARRIS. jd3 07:35 Primary Nurse role handed off by Loki Chang RN 07:35 Daniela Miller, RN is Primary Nurse. Administered Medications: 05:11 Drug: Lasix 40 mg Route: IVP; Site: right antecubital; jd3 06:02 Follow up: Response: No adverse reaction jd3 06:01 Drug: Lovenox 1 mg/kg Route: Sub-Q; Site: abdomen; jd3 06:47 Follow up: Response: No adverse reaction jd3 Outcome: 05:54 ER care complete, transfer ordered by . [email or web address] 07:30 Transferred by ground EMS [facility]. to [facility], Transfer form completed. X-rays sent w/ patient. 07:30 Condition: stable 07:30 Instructed on the need for transfer. 07:35 Patient left the ED. Signatures: Dispatcher [employer] EDMS Daniela Miller, Maria C Allen RN, ch, Jonathon, RN RN jd3 Wadley, Terrence, MD MD 4 Daphne Wilde cc3 Corrections: (The following items were deleted from the chart) 03:39 03:34 BP 146 / 126; Pulse 110bpm; Resp 23bpm; Spontaneous; Pulse Ox 95% RA; Temp 98.0F jd3 Oral; 81.65 kg Reported; Height 5 ft. 5 in. Reported; BMI: 29.9; Pain 5/10; jd3 06:46 06:45 BP 101 / 73; Pulse 93bpm; Resp 20bpm; Spontaneous; Pulse Ox 95% RA; jd3 jd3
--- NOTE | 2018-07-22 05:54 | EDPHYS ---
Physician Documentation [facility] Name: Reta Anderson Age: 52 yrs Sex: Female : 1965 Arrival Date: 07/22/2018 Time: 03:28 Bed 17 Private MD: ED Physician Earl Bowser HPI: 07/22 05:56 This 52 yrs old Female presents to ER via EMS with complaints of chest pain tw4 and SOB. 05:56 The patient has shortness of breath at rest. Onset: The symptoms/episode began/occurred tw4 3 day(s) ago. Duration: The symptoms are continuous, and are unchanged since they started. The patient's shortness of breath is aggravated by exertion, is alleviated by. Associated signs and symptoms: The patient has no apparent associated signs or symptoms. Severity of symptoms: At their worst the symptoms were moderate in the emergency department the symptoms are unchanged. The patient has not experienced similar symptoms in the past. 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 - Social history:: Smoking status: Patient/guardian denies using tobacco, the patient reports quitting approximately 1 years ago. - Ebola Screening: : Patient negative for fever greater than or equal to 101.5 degrees Fahrenheit, and additional compatible Ebola Virus Disease symptoms. ROS: 05:56 Constitutional: Negative for fever, chills, and weight loss, Eyes: Negative for injury, tw4 pain, redness, and discharge, Cardiovascular: Negative for chest pain, palpitations, and edema. 05:56 Abdomen/GI: Negative for abdominal pain, nausea, vomiting, diarrhea, and constipation, Back: Negative for injury and pain, MS/Extremity: Negative for injury and deformity, Skin: Negative for injury, rash, and discoloration, Neuro: Negative for headache, weakness, numbness, tingling, and seizure. 05:56 Respiratory: Positive for dyspnea on exertion, shortness of breath, Negative for cough. Exam: 05:56 Constitutional: This is a well developed, well nourished patient who is awake, alert, tw4 and in no acute distress. Head/Face: Normocephalic, atraumatic. Chest/axilla: Normal chest wall appearance and motion. Nontender with no deformity. No lesions are appreciated. Cardiovascular: Regular rate and rhythm with a normal S1 and S2. No gallops, murmurs, or rubs. Normal PMI, no JVD. No pulse deficits. Respiratory: Lungs have equal breath sounds bilaterally, clear to auscultation and percussion. No rales, rhonchi or wheezes noted. No increased work of breathing, no retractions or nasal flaring. Abdomen/GI: Soft, non-tender, with normal bowel sounds. No distension or tympany. No guarding or rebound. No evidence of tenderness throughout. Back: No spinal tenderness. No costovertebral tenderness. Full range of motion. MS/ Extremity: Pulses equal, no cyanosis. Neurovascular intact. Full, normal range of motion. Neuro: Awake and alert, GCS 15, oriented to person, place, time, and situation. Cranial nerves II-XII grossly intact. Motor strength 5/5 in all extremities. Sensory grossly intact. Cerebellar exam normal. Normal gait. Vital Signs: 03:34 BP 118 / 82; Pulse 110; Resp 23 S; Temp 98.0(O); Pulse Ox 95% on R/A; Weight 81.65 kg jd3 (R); Height 5 ft. 5 in. (165.10 cm) (R); Pain 5/10; 04:30 BP 102 / 83; Pulse 101; Resp 21 S; Pulse Ox 94% on R/A; jd3 05:27 BP 109 / 82; Pulse 94; Resp 21 S; Pulse Ox 95% on R/A; jd3 06:30 BP 101 / 73; Pulse 93; Resp 20 S; Pulse Ox 95% on R/A; jd3 03:34 Body Mass Index 29.95 (81.65 kg, 165.10 cm) jd3 MDM: 03:44 Patient medically screened. tw4 05:56 Differential diagnosis: CHF exacerbation, Myocardial Infarction pneumonia, tw4 Pneumothorax. Data reviewed: vital signs, nurses notes. Data interpreted: site monitor: rhythm is normal sinus rhythm, Pulse oximetry: Interpretation: normal. Counseling: I had a detailed discussion with the patient and/or guardian regarding: the historical points, exam findings, and any diagnostic results supporting the discharge/admit diagnosis. Medication response: Response to treatment: the patient's symptoms have mildly improved after treatment, and as a result, I will admit patient. ED course: Pt brought to the ED with complaint of chest pain and SOB for 2 days. Pt has had no EKG changes however has had elevated troponin. Will transfer back to [facility] for continuity of care. 07/22 03:42 Order name: Basic Metabolic Panel; Complete Time: 05:02 07/22 05:02 Interpretation: Normal except: CL 112; BUN 27; GLUC 121; GFR 48. 07/22 03:42 Order name: CBC with Diff; Complete Time: 05:02 07/22 05:03 Interpretation: Normal except: GROVER% 76.9; MCH 31.1; LYM% 15.2. 07/22 03:42 Order name: LFT's; Complete Time: 05:02 07/22 05:03 Interpretation: Normal except: AST 38; ALB 3.0; GLOB 3.9; A/G 0.8. 07/22 03:42 Order name: Magnesium; Complete Time: 05:02 07/22 05:04 Interpretation: Within normal limits: MG 2.0. 07/22 03:42 Order name: NT PRO-BNP; Complete Time: 05:02 07/22 05:03 Interpretation: Normal except: NT PRO-BNP 7353. 07/22 03:42 Order name: PT-INR; Complete Time: 05:02 07/22 05:04 Interpretation: Within normal limits: PT 12.5. 07/22 03:42 Order name: Troponin (emerg Dept Use Only); Complete Time: 05:02 07/22 05:03 Interpretation: Normal except: TROPED 0.11. tw4 07/22 03:42 Order name: XRAY Chest (1 view) jd3 07/22 03:42 Order name: EKG; Complete Time: 03:42 jd3 07/22 03:42 Order name: Cardiac monitoring; Complete Time: 03:43 jd3 07/22 03:48 Order name: Urine Dipstick--Ancillary (enter results); Complete Time: 05:02 ms 07/22 05:04 Interpretation: Normal except: UBLD TRACE. tw4 07/22 03:53 Order name: Urine --Ancillary (enter results); Complete Time: 05:02 ms 07/22 05:04 Interpretation: Within normal limits. tw4 07/22 03:42 Order name: EKG - Nurse/Tech; Complete Time: 03:44 jd3 07/22 03:42 Order name: IV Saline Lock; Complete Time: 03:44 jd3 07/22 03:42 Order name: Labs collected and sent; Complete Time: 03:48 jd3 07/22 03:42 Order name: O2 Per Protocol; Complete Time: 03:44 jd3 07/22 03:42 Order name: O2 Sat Monitoring; Complete Time: 03:44 jd3 EC:22 Rate is 101 beats/min. Rhythm is regular. QRS Alicia is Normal. TN interval is normal. tw4 QRS interval is normal. QT interval is normal. No Q waves. T waves are Inverted in lead V6. No ST changes noted. Clinical impression: Abnormal EKG without significant change and Sinus tachycardia. Interpreted by me. Reviewed by me. Administered Medications: 05:11 Drug: Lasix 40 mg Route: IVP; Site: right antecubital; jd3 06:02 Follow up: Response: No adverse reaction jd3 06:01 Drug: Lovenox 1 mg/kg Route: Sub-Q; Site: abdomen; jd3 06:47 Follow up: Response: No adverse reaction jd3 Disposition: 07/22/18 05:54 Transfer ordered to [facility]. Diagnosis are Combined systolic (congestive) and diastolic (congestive) heart failure, Non-ST elevation (NSTEMI) myocardial infarction. - Reason for transfer: Higher level of care. - Accepting physician is Dr Mac. - Condition is Stable. - Problem is an ongoing problem. - Symptoms are unchanged. Signatures: Dispatcher [employer] Daniela Corbin, RN RN Loki Chang RN RN Earl Rivas MD MD tw4 Corrections: (The following items were deleted from the chart) 07:35 05:54 07/22/2018 05:54 Transfer ordered to [facility]. Diagnosis is Combined systolic (congestive) and diastolic (congestive) heart failure; Non-ST elevation (NSTEMI) myocardial infarction. Reason for transfer: Higher level of care. Accepting physician is Dr Mac. Condition is Stable. Problem is an ongoing problem. Symptoms are unchanged. tw4
[2018-07-22] MEDS ORDERED: ENOXAPARIN 80 MG/0.8 ML SQ ONE (06:06)
[2018-07-22 07:47] VITALS: TEMP 98
[2018-07-22 07:49] VITALS: O2SAT 95
[2018-07-22 07:50] VITALS: BP 101/73
--- NOTE | 2018-07-22 08:21 | RAD REPORT ---
EXAM DESCRIPTION: RAD - Chest Single View - 07/22/2018 4:02 am CLINICAL HISTORY: CHEST PAIN Chest pain. COMPARISON: Chest Single View dated 07/08/2018; Chest Single View dated 11/29/2017; Chest Single View dated 07/13/2016; Chest Single View dated 01/19/2016 FINDINGS: Portable technique limits examination quality. Mild interstitial pulmonary edema is seen. The heart is moderately enlarged in size with multiple sti mulator device is present. No displaced fractures.Hardware is noted proximal right humerus. IMPRESSION: Mild to moderate CHF versus volume overload pattern.
--- NOTE | 2018-07-22 09:07 | EKG ---
Test Date: 2018-07-22 Test Time: 03:24:10 Neon Tube Bender: [place] MEASUREMENT RESULTS: Intervals: Rate: 101 MN: 130 QRSD: 110 QT: 378 QTc: 490 [place]: P: 45 MN: 130 QRS: -44 T: 51 INTERPRETIVE STATEMENTS: Sinus tachycardia Possible Left atrial enlargement Left axis deviation LVH with secondary repolarization changes Abnormal ECG Compared to ECG 07/08/2018 07:45:35 Ventricular premature complex(es) no longer present Electronically Signed On 07-22-18 09:06:42 CDT by Ander Worthington
== END 2018-07-22 07:35 | disposition short-term general hospital (02) ==
LOC: ER 03:19
DX: I21.4 Non-ST elevation (NSTEMI) myocardial infarction (principal); I50.42 Chronic combined systolic (congestive) and diastolic (congestive) heart failure
CPT/HCPCS: 36415; 71045; 80048; 80076; 81003; 81025; 83735; 83880; 84484; 85025; 85610; 93005; 96372; 96374; 99285; J1650

== ENCOUNTER 2018-08-31 06:26 | Emergency (ER) | payer OTHER ==
--- OUTSIDE RECORDS SUMMARY | 2018-08-31 06:29 | XMS REPORT | Clinical Summary ---
:1965 Author Organization [facility] Address [address] [place] [address] Care Team Providers Name Role Phone Martinez Givens MD Primary Care Provider Unavailable Allergies Active Allergy Reactions Severity Noted Date Comments Adhesive Tape-Silicones 05/30/2016 rash Clindamycin GI Intolerance 05/30/2016 Nausea / Vomiting Medications Medication Sig Dispensed Refills Start Date End Date Status DHCODEINE Take 16-320 0 Active BT/ACETAMINOPHN/CAFF mg by mouth 3 (TREZIX ORAL) (three) times a day. lisinopril Take 1 tablet 30 tablet 11 07/25/2018 07/25/2019 Active (PRINIVIL,ZESTRIL) (2.5 mg 2.5 mg tablet total) by mouth daily. metoprolol succinate Take 1 tablet 90 tablet 3 07/24/2018 07/24/2019 Active XL (TOPROL-XL) 100 (100 mg mg 24 hr total) by tabletIndications: mouth daily. Chronic combined systolic and diastolic CHF (congestive heart failure) ([facility]) furosemide (LASIX) Take 1 tablet 60 tablet 11 07/24/2018 07/24/2019 Active 40 mg tablet (40 mg total) by mouth 2 (two) times a day. spironolactone Take 1 tablet 90 tablet 3 07/24/2018 07/24/2019 Active (ALDACTONE) 25 MG (25 mg total) [...] TABLET BY 24 hr tablet MOUTH DAILY lisinopril TAKE ONE 30 tablet 1 02/05/2017 07/22/2018 Discontinued (PRINIVIL,ZESTRIL) 5 TABLET BY mg tablet MOUTH DAILY spironolactone Take 0.5 15 tablet 2 01/08/2018 02/12/2018 Discontinued (ALDACTONE) 25 MG tablets (12.5 tablet mg total) by mouth daily. furosemide (LASIX) Take 1 tablet 30 tablet 1 01/08/2018 07/24/2018 Discontinued 40 mg tablet (40 mg total) by mouth daily. metoprolol succinate Take 1 tablet 30 tablet 1 01/08/2018 02/12/2018 Discontinued XL (TOPROL-XL) 50 mg (50 mg total) 24 hr tablet by mouth daily. metoprolol succinate Take 1 tablet 90 tablet 3 02/12/2018 07/24/2018 Discontinued XL (TOPROL-XL) 100 (100 mg mg 24 hr total) by tabletIndications: mouth daily. Chronic combined systolic and diastolic CHF (congestive heart failure) (HCC) spironolactone Take 1 tablet 90 tablet 3 02/12/2018 07/24/2018 Discontinued (ALDACTONE) 25 MG (25 mg total) tabletIndications: by mouth Chronic combined daily. systolic and diastolic CHF (congestive heart failure) (HCC) Active Problems Patient Care Coordination Note No echocardiogram Last Visit - 07/18/2016 HPI: Ms. Grace was recently diagnosed with HF after 6 months of progressive GRANADOS. [facility] Obie Buckley consulted [...] Cardiomyopathy - Continue OMT. Problem Noted Date CHF (congestive heart failure) 07/22/2018 Severe major depression with psychotic features 07/03/2017 Essential hypertension 07/03/2017 Chronic combined systolic and diastolic CHF (congestive heart failure) 2016 Encounters Date Type Specialty Care Team Description 07/24/2018 Patient Outreach Quality Hayes Padron RN 07/24/2018 Orders Only Transplant Prieto Aleksandr Chronic systolic heart [place], [employer]-C failure (HCC) (Primary Dx) 07/24/2018 Orders Only Transplant Aleksandr Moreau Chronic systolic heart [place], [employer]-C failure (HCC) (Primary Dx) 07/22/2018 - Hospital Encounter Cardiology Rosa Mak combined 07/24/2018 MD Olimpia systolic and diastolic CHF (congestive heart failure) (HCC) 07/22/2018 Intake Access N/A 02/12/2018 Office Visit Cardiology Rosa Mak combined systolic and diastolic CHF (congestive heart failure) (Primary Dx); MD Olimpia Essential hypertension; Severe major depression with psychotic features 01/08/2018 Refill Cardiology Obdulio, Med Refill MD Olimpia after 08/30/2017 Family History Medical History Relation Name Comments [...] Vital Sign Reading Time Taken Blood Pressure 104/67 07/24/2018 12:08 PM CDT Pulse 95 07/24/2018 12:08 PM CDT Temperature 36.1 C (97 F) 07/24/2018 12:08 PM CDT Respiratory Rate 18 07/24/2018 12:08 PM CDT Oxygen Saturation 96% 07/24/2018 12:08 PM CDT Inhaled Oxygen Concentration - - Weight 79.9 kg (176 lb 3.2 oz) 07/24/2018 4:49 AM CDT Height 165.1 cm (5' 5") 02/12/2018 4:39 PM CDT Body Mass Index 29.32 07/24/2018 4:49 AM CDT Plan of Treatment Health Maintenance Due Date Last Done Comments CERVICAL CANCER SCREENING 1988 COLON CANCER SCREENING 2017 SHINGRIX VACCINE (1 of 2) 2017 INFLUENZA VACCINE 04/24/2018 BREAST CANCER SCREENING 06/07/2018 06/07/2016, 05/10/2016, 05/10/2016 HEPATITIS B VACCINES Aged Out No longer eligible based on patient's age to complete this topic IPV VACCINES Aged Out No longer eligible based on patient's age to complete this topic MENINGOCOCCAL VACCINE Aged Out No longer eligible based on patient's age to complete this topic Procedures Procedure Name Priority Date/Time Associated Comments Diagnosis ESTIMATED GFR Routine 07/24/2018 5:10 Results for this AM CDT procedure are in the results section. BASIC METABOLIC PANEL Routine 07/24/2018 5:10 Results for this AM CDT procedure are in the results section. HC COMPLETE BLD COUNT Routine 07/23/2018 4:15 Results for this W/AUTO DIFF AM CDT procedure are in the results section. ESTIMATED GFR Routine 07/23/2018 4:00 Results for this AM CDT procedure are in the results section. MAGNESIUM LEVEL Routine 07/23/2018 4:00 Results for this AM CDT procedure are in the results section. BASIC METABOLIC PANEL Routine 07/23/2018 4:00 Results for this AM CDT procedure are in the results section. POTASSIUM LEVEL Routine 07/22/2018 4:40 Results for this PM CDT procedure are in the results section. POTASSIUM LEVEL Routine 07/22/2018 1:36 Results for this PM CDT procedure are in the results section. ECHOCARDIOGRAM 2D Routine 07/22/2018 12:41 Results for this COMPLETE W MMODE PM CDT procedure are in SPECTRAL COLOR DOPPLER the results (16633) section. MAGNESIUM LEVEL Routine 07/22/2018 11:00 Results for this AM CDT procedure are in the results section. ESTIMATED GFR Routine 07/22/2018 11:00 Results for this AM CDT procedure are in the results section. B NATRIURETIC PEPTIDE Routine 07/22/2018 11:00 Results for this AM CDT procedure are in the results section. TROPONIN Routine 07/22/2018 11:00 Results for this AM CDT procedure are in the results section. HC COMPLETE BLD COUNT Routine 07/22/2018 11:00 Results for this W/AUTO DIFF AM CDT procedure are in the results section. BASIC METABOLIC PANEL Routine 07/22/2018 11:00 Results for this AM CDT procedure are in the results section. ECG 12-LEAD Routine 07/22/2018 10:56 Results for this AM CDT procedure are in the results section. after 08/30/2017 Results Estimated GFR (07/24/2018 5:10 AM CDT)Only the most recent of3 resultswithin the time period is included. Estimated GFR 69 mL/min/1.73 m2 [facility] DEPARTMENT OF Comment: PATHOLOGY AND GENOMIC CatergoryUnitsInterpretation MEDICINE G1 >=90 Normal or high G2 60-89Mildly decreased [id number] to moderately decreased [id number] to severely decreased G4 15-29Severely decreased G5 <15Kidney failure The eGFR was calculated using the Chronic Kidney Disease Epidemiology Collaboration (CKD-EPI) equation. Interpretation is based on recommendations of the National Kidney Foundation-Kidney Disease Outcomes Quality Initiative (NKF-KDOQI) published in 2014. Specimen Plasma specimen Performing Organization Address City/State/Zipcode Phone Number [facility] DEPARTMENT OF PATHOLOGY AND [address] [place] [address] Compression Kinetics Basic metabolic panel (07/24/2018 5:10 AM CDT)Only the most recent of3 resultswithin the time period is included. Sodium 137 135 - 148 mEq/L [facility] DEPARTMENT OF PATHOLOGY AND GENOMIC MEDICINE Potassium 4.4 3.5 - 5.0 mEq/L [facility] DEPARTMENT OF PATHOLOGY AND GENOMIC MEDICINE Chloride 101 98 - 112 mEq/L [facility] DEPARTMENT OF PATHOLOGY AND GENOMIC MEDICINE CO2 20 (L) 24 - 31 mEq/L [facility] DEPARTMENT OF PATHOLOGY AND GENOMIC MEDICINE Anion gap 16@ANIO (H) 7 - 15 mEq/L [facility] DEPARTMENT OF PATHOLOGY AND GENOMIC MEDICINE BUN 21 (H) 6 - 20 mg/dL [facility] DEPARTMENT OF PATHOLOGY AND GENOMIC MEDICINE Creatinine 0.95 (H) 0.50 - 0.90 mg/dL [facility] DEPARTMENT OF PATHOLOGY AND GENOMIC MEDICINE Glucose 108 (H) 65 - 99 mg/dL [facility] DEPARTMENT OF PATHOLOGY AND GENOMIC MEDICINE Calcium 9.2 8.3 - 10.2 mg/dL [facility] DEPARTMENT OF PATHOLOGY AND GENOMIC MEDICINE Specimen Plasma specimen Performing Organization Address City/[facility]/Zipcode Phone Number [facility] DEPARTMENT OF PATHOLOGY AND [address] [place] [phone] GENOMIC MEDICINE CBC with platelet and differential (07/23/2018 4:15 AM CDT)Only the most recent of2 resultswithin the time period is included. WBC 8.26 4.50 - 11.00 k/uL [facility] DEPARTMENT OF PATHOLOGY AND GENOMIC MEDICINE RBC 4.49 4.20 - 5.50 m/uL [facility] DEPARTMENT OF PATHOLOGY AND GENOMIC MEDICINE HGB 13.3 12.0 - 16.0 g/dL [facility] DEPARTMENT OF PATHOLOGY AND GENOMIC MEDICINE HCT 41.1 37.0 - 47.0 % [facility] DEPARTMENT OF PATHOLOGY AND GENOMIC MEDICINE MCV 91.5 82.0 - 100.0 fL [facility] DEPARTMENT OF PATHOLOGY AND GENOMIC MEDICINE MCH 29.6 27.0 - 34.0 pg [facility] DEPARTMENT OF PATHOLOGY AND GENOMIC MEDICINE MCHC 32.4 31.0 - 37.0 g/dL [facility] DEPARTMENT OF PATHOLOGY AND GENOMIC MEDICINE RDW - SD 45.9 37.0 - 55.0 fL [facility] DEPARTMENT OF PATHOLOGY AND GENOMIC MEDICINE MPV 11.3 8.8 - 13.2 fL [facility] DEPARTMENT OF PATHOLOGY AND GENOMIC MEDICINE Platelet count 240 150 - 400 k/uL [facility] DEPARTMENT OF PATHOLOGY AND GENOMIC MEDICINE Nucleated RBC 0.00 /100 WBC [facility] DEPARTMENT OF PATHOLOGY AND GENOMIC MEDICINE Neutrophils 56.4 39.0 - 69.0 % [facility] DEPARTMENT OF PATHOLOGY AND GENOMIC MEDICINE Lymphocytes 31.4 25.0 - 45.0 % [facility] DEPARTMENT OF PATHOLOGY AND GENOMIC MEDICINE Monocytes 7.5 0.0 - 10.0 % [facility] DEPARTMENT OF PATHOLOGY AND GENOMIC MEDICINE Eosinophils 4.0 0.0 - 5.0 % [facility] DEPARTMENT OF PATHOLOGY AND GENOMIC MEDICINE Basophils 0.5 0.0 - 1.0 % [facility] DEPARTMENT OF PATHOLOGY AND GENOMIC MEDICINE Immature granulocytes 0.2Comment: 0.0 - 1.0 % [facility] DEPARTMENT OF "Immature PATHOLOGY AND GENOMIC granulocytes" MEDICINE (promyelocytes, myelocytes, metamyelocytes) Specimen Blood Performing Organization Address City/[facility]/Zipcode Phone Number [facility] DEPARTMENT OF PATHOLOGY AND [address] [place] [address] [facility] Magnesium level (07/23/2018 4:00 AM CDT)Only the most recent of2 resultswithin the time period is included. Magnesium 2.3 1.6 - 2.6 mg/dL [facility] DEPARTMENT OF PATHOLOGY AND GENOMIC MEDICINE Specimen Plasma specimen Performing Organization Address City/[facility] Phone Number [facility] DEPARTMENT OF PATHOLOGY AND [address] [place] [address] Potassium level (07/22/2018 4:40 PM CDT)Only the most recent of2 resultswithin the time period is included. Potassium 3.9 3.5 - 5.0 mEq/L [facility] DEPARTMENT OF PATHOLOGY AND GENOMIC MEDICINE Specimen Plasma specimen Performing Organization Address [facility] Phone Number [facility] DEPARTMENT OF PATHOLOGY AND [address] [place] [address] Echocardiogram complete w contrast and 3D if needed (07/22/2018 12:41 PM CDT) Narrative Performed At [facility] Echocardiography Report [address] [place] [address] Pat.Name:RETA GARRISON Pat.ID:[id number] .Date: 07/22/2018Refer.MD:OLIMPIA MAK MD Exam Time: 12:08:00 PM Study Type:Routine Echo Height:65inWeight: 172lb BSA: 1.86 m2 DOBAge:1965,52Y Sex: FEMALEBP:101/67 HR:95 bpmSonogrphr: TY Shin Pat. Stat.:Inpatient Room:[facility] Study Status:Final Echo Event ID:[id number] Order ID:[id number] Reason for Study:CHF Procedures:2D Echo, Colorflow Doppler, Intravenous Optison Contrast Race:C SUMMARY: Severe bivenricular failure. Severe bi-atrial enlargement. Severe functional mitral regurgitation. FINDINGS: LV: LV size is moderately enlarged. There is severe eccentric LV hypertrophy.LV EF is severely depressed. Global hypokinesis.Estimated EF is <20%. RV: RV size is severely enlarged. RV systolic function is severelydepressed. RV wall motion is severely hypokinetic. LA: LA volume is severely enlarged. RA: RA volume is severely enlarged. AO: Aortic root diameter is mildly enlarged. FREDDIE: No pericardial effusion. AV: Focal calcification of AV leaflets. MV: Mild mitral annular calcification. Dilated annulus. Severe mitralregurgitation. Etiology of MR is secondary to LV dysfunctionand remodeling. Estimated regurgitant fraction is59 %. PV: No structural PV abnormalities noted. TV: Dilated tricuspid annulus. A trace of tricuspid regurgitation Other:Estimated PA systolic pressure is 46 mmHg, assuming a mean RAPof 10 mmHg. MEASUREMENTS: 2D Parasternal [place] LVOT 2.3 cmLA Ds4.2 cm LVIDd5.9 cmIndex3.1 cm/m Ao Rtd 3.5 cm Index1.9 cm/m LVIDs5.4 cmLV Kamh850.2 g(87-129) LV%fs8.3 % LVM Ftlpl204.6 g/m2 IVSd 1.2 cmRWT0.3 LVPWd0.9 cm LA Sng Plane LA Area 28 cm2(8.8-23.4) LA Vol94.6 ml Index50.9 ml/m LA LngAx 6.7 cm RA Sng Plane RA Area 24 cm2(8.3-19.5) RA Vol85.5 ml Index46 ml/m RA LngAx 5.8 cm DOPPLER LVOT Stroke Vol LVOT 2.3 cmLVOT CO3.1 l/min LVOT TVI 7.7 cmLVOT CI1.7 l/m/m2 LVOT Tm222 [id number] bpm LVOT SV 32.1 ml MA Stroke Vol ann3.4 cmCO 7.2 l/min TVI8.6 cmCI 3.9 l/m/m2 Tm 320 [id number] bpm SV78.3 ml Signed 07/22/2018 05:52 PM Heather Willard M.D. Procedure Note Interface, Radiology Results In - 07/22/2018 5:53 PM CDT Echocardiography Report [address] [place] [address] Pat.Name: RETA GARRISON Pat.ID: [id number] .Date: 07/22/2018 Refer.MD: OLIMPIA MAK MD Exam Time: 12:08:00 PM Study Type:Routine Echo Height: 65in Weight: 172lb BSA: 1.86 m2 Age: 14 1965,52Y Sex: FEMALE BP: 101/67 HR: 95 bpm Sonogrphr: TY Shin Pat. Stat.:Inpatient Room: [facility] Study Status:Final Echo Event ID:[id number] Order ID: [id number] Reason for Study:CHF Procedures:2D Echo, Colorflow Doppler, Intravenous Optison Contrast Race: C SUMMARY: Severe bivenricular failure. Severe bi-atrial enlargement. Severe functional mitral regurgitation. FINDINGS: LV: LV size is moderately enlarged. There is severe eccentric LV hypertrophy. LV EF is severely depressed. Global hypokinesis. Estimated EF is <20%. RV: RV size is severely enlarged. RV systolic function is severely depressed. RV wall motion is severely hypokinetic. LA: LA volume is severely enlarged. RA: RA volume is severely enlarged. AO: Aortic root diameter is mildly enlarged. FREDDIE: No pericardial effusion. AV: Focal calcification of AV leaflets. MV: Mild mitral annular calcification. Dilated annulus. Severe mitral regurgitation. Etiology of MR is secondary to LV dysfunction and remodeling. Estimated regurgitant fraction is 59 %. PV: No structural PV abnormalities noted. TV: Dilated tricuspid annulus. A trace of tricuspid regurgitation Other: Estimated PA systolic pressure is 46 mmHg, assuming a mean RAP of 10 mmHg. MEASUREMENTS: 2D Parasternal Long [place] LVOT 2.3 cm LA Ds 4.2 cm LVIDd 5.9 cm Index 3.1 cm/m Ao Rtd 3.5 cm Index 1.9 cm/m LVIDs 5.4 cm LV Mass 252.2 g (87-129) LV%fs 8.3 % LVM Index 135.6 g/m2 IVSd 1.2 cm RWT 0.3 LVPWd 0.9 cm LA Sng Plane LA Area 28 cm2 (8.8-23.4) LA Vol 94.6 ml Index 50.9 ml/m LA LngAx 6.7 cm RA Sng Plane RA Area 24 cm2 (8.3-19.5) RA Vol 85.5 ml Index 46 ml/m RA LngAx 5.8 cm DOPPLER LVOT Stroke Vol LVOT 2.3 cm LVOT CO 3.1 l/min LVOT TVI 7.7 cm LVOT CI 1.7 l/m/m2 LVOT Tm 222 msec HR 96 bpm LVOT SV 32.1 ml MA Stroke Vol deandra 3.4 cm CO 7.2 l/min TVI 8.6 cm CI 3.9 l/m/m2 Tm 320 msec HR 92 bpm SV 78.3 ml Signed 07/22/2018 05:52 PM Heather Willard M.D. Performing Organization Address City/State/Zipcode Phone Number [facility] [address] [place] [address] Troponin (07/22/2018 11:00 AM CDT) Troponin <0.30 0.00 - 0.30 ng/mL [facility] DEPARTMENT OF PATHOLOGY Comment: AND GENOMIC MEDICINE 0.30 - 1.49 ng/mlMay indicate increased risk of acute coronary syndrome. >=1.5 ng/mlConsistent with acute myocardial infarction. The diagnostic value of a single normal or non-diagnostic result is questionable.Serial samples at 2-6 hour intervals are required to rule out acute myocardial injury. Specimen Plasma specimen Performing Organization Address City/State/Zipcode Phone Number [facility] DEPARTMENT OF PATHOLOGY AND [address] [phone] [facility] B natriuretic peptide (07/22/2018 11:00 AM CDT) BNP 980 (H) 0 - 100 pg/mL [facility] DEPARTMENT OF PATHOLOGY AND [facility] Specimen Blood Narrative Performed At added MG per An Farooq RN 07/22/2018 [facility] DEPARTMENT OF PATHOLOGY AND GENOMIC 12:03 by [facility] MED[facility]INE SPECIMEN HEMOLYZED.RECOLLECT REQUESTED FOR K+.NOTIFIED Daryn/AN 07/22/201812:08 Performing Organization Address [facility] Phone Number [facility] DEPARTMENT OF PATHOLOGY AND [address] [place] [address] [facility] ECG 12 lead (07/22/2018 10:56 AM CDT) Ventricular rate 89 [facility] Atrial rate 89 [facility] KS interval 138 [facility] QRSD interval 112 [facility] QT interval 412 [facility] QTC interval 501 [facility] P axis 1 20 [facility] QRS axis 1 -42 [facility] T wave axis 98 [facility] MUSE EKG impression Normal sinus rhythm-Possible Left atrial enlargement-Left axis deviation-Incomplete left bundle branch block-Left ventricular hypertrophy with repolarization abnormality-Prolonged QT-Abnormal ECG-No pre [facility] MUSE vious ECGs available- Performing Organization Address City/[facility]/Zipcode Phone Number [facility] [address] [place] [address] after 08/30/2017 Insurance Payer Benefit Plan / Group Subscriber ID Type Phone Address MEDICARE MEDICARE PART A AND B xxxxxxxxxxx Medicare [place], [place] Advance Directives Patient has advance care planning documents on file. For more information, please contact:Ryan Gonzalez[address] [place] [address]
--- OUTSIDE RECORDS SUMMARY | 2018-08-31 06:29 | XMS REPORT | Clinical Summary ---
:1965 Author Organization [facility] Address [address] [place] [address] Care Team Providers Name Role Phone Martinez [...] 07/08/2018 Orders Only General Internal Medicine after 08/30/2017 Social History Tobacco Use Types Packs/Day Years [...] in the results section. after 08/30/2017 Results RHYTHM STRIP - SCAN (07/12/2018 11:00 AM CDT) Narrative Performed At CBC with platelet count + automated diff (07/11/2018 4:10 AM CDT)Only the most recent of4 resultswithin the time period is included. WBC 8.7 3.5 - 10.5 K/L [facility] RBC 4.13 3.93 - 5.22 M/L [facility] Hemoglobin 12.4 11.2 - 15.7 GM/DL [facility] Hematocrit 39.1 34.1 - 44.9 % [facility] MCV 94.7 79.4 - 94.8 fL [facility] MCH 30.0 25.6 - 32.2 pg [facility] MCHC 31.7 (L) 32.2 - 35.5 GM/DL [facility] RDW 13.9 11.7 - 14.4 % [facility] Platelets 262 150 - 450 K/CU MM [facility] MPV 11.7 9.4 - 12.3 fL [facility] nRBC 0 0 - 0 /100 WBC [facility] % Neutros 49 % [facility] % Lymphs 40 % [facility] % Monos 8 % [facility] % Eos 2 % [facility] % Baso 1 % [facility] # Neutros 4.25 1.56 - 6.13 K/L [facility] # Lymphs 3.50 1.18 - 3.74 K/L [facility] # Monos 0.66 (H) 0.24 - 0.36 K/L [facility] # Eos 0.19 0.04 - 0.36 K/L [facility] # Baso 0.06 0.01 - 0.08 K/L [facility] Immature Granulocytes-Relative 0 0 - 1 % [facility] Specimen Blood Performing Organization Address City/[facility]/Zipcode Phone Number [address] [address] CENTER aPTT (07/11/2018 4:10 AM CDT)Only the most recent of8 resultswithin the time period is included. PTT 90.5 (H) 22.5 - 36.0 seconds [facility] Specimen Blood Performing Organization Address City/[facility]/Zipcode Phone Number [address] [address] CENTER Magnesium (07/11/2018 4:10 AM CDT)Only the most recent of4 resultswithin the time period is included. Magnesium 2.3 1.6 - 2.6 mg/dL [facility] Specimen Blood Performing Organization Address City/[facility]/Zipcode Phone Number [address] [address] [phone] [place] Basic Metabolic Panel (07/11/2018 4:10 AM CDT)Only the most recent of3 resultswithin the time period is included. Sodium 138 136 - 145 meq/L [facility] Potassium 4.5 3.5 - 5.1 meq/L [facility] Chloride 107 98 - 107 meq/L [facility] CO2 24 22 - 29 meq/L [facility] BUN 22 (H) 7 - 21 mg/dL [facility] Creatinine 0.96 0.57 - 1.25 mg/dL [facility] Glucose 101 70 - 105 mg/dL [facility] Calcium 8.5 8.4 - 10.2 mg/dL [facility] EGFR 62Comment: ESTIMATED GFR IS mL/min/1.73 sq m [facility] NOT ACCURATE CREATININE [facility] CENTER CLEARANCE IN PREDICTING GLOMERULAR FILTRATION RATE. ESTIMATED GFR IS NOT APPLICABLE FOR DIALYSIS PATIENTS. Specimen Blood Performing Organization Address [facility] Phone Number [address] [address] [place] Iron, TIBC, % sat. (without ferritin) (07/09/2018 4:08 AM CDT) Iron 40 40 - 160 ug/dL [facility] TIBC 398 250 - 450 ug/dL [facility] Iron % Saturation 10 (L) 20 - 55 % [facility] Specimen Blood - Arm, Right Performing Organization Address [facility]/Zipcode Phone Number [phone] [place] [address] [place] Troponin I (07/09/2018 4:08 AM CDT)Only the most recent of2 resultswithin the time period is included. Troponin I 6.35 (HH) 0.00 - 0.03 ng/mL [facility] Specimen Blood - Arm, Right Narrative Performed At [facility] Troponin I (TnI) levels must be interpreted [...] disease, and persistent tachyarrhythmia. Performing Organization Address City/State/[facility] Phone Number [address] [address] [phone] [place] Ferritin (07/09/2018 4:08 AM CDT) Ferritin 88 5 - 275 ng/mL [facility] Specimen Blood - Arm, Right Performing Organization Address [facility] Phone Number [address] [address] [place] Lipid panel (07/09/2018 4:08 AM CDT) Triglycerides 60 mg/dL [facility] Cholesterol 162 mg/dL [facility] HDL 44 mg/dL [facility] LDL Calculated 106 mg/dL [facility] Specimen Blood - Arm, Right Narrative Performed At [facility] Triglyceride Reference Range: Low Risk <150 [id number] High Risk 200-499 Very High Risk>=500 Cholesterol Reference Range: Low Risk <200 [id number] High Risk>240 HDL Cholesterol Reference Range: Low Risk >=60 High Risk <40 LDL Cholesterol Reference Range: Optimal<100 Near Egvvysx067-358 [id number] Mhzw375-850 Very High >=190 Performing Organization Address City/State/Zipcode Phone Number [facility] [address] [place] [address] CENTER ECHOCARDIOGRAM REPORT - SCAN (07/08/2018 5:20 PM CDT) Narrative Performed At Transthoracic 2D echo w/ doppler (cw/pw/color) (07/08/2018 3:42 PM CDT) Ejection Fraction [facility] Narrative Performed At Transthoracic Echocardiography Report (TTE) [facility] Demographics Patient LAURA,Date of Study 07/08/2018 Blanca RAMIREZ Female Visit [id number] Unknown Number Room Number C823 Number Date of 1965Referring Vicenta OWENS Noe [facility] Physician Age 52 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 Patricia Dillon NB, RDCS,RVT,RDMS 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 Refugio Peralta MD Physician Procedure Type of [...] 07/08/2018 Name RETA RAMIREZ Gender Female Visit [id number] Race Unknown Number Room Number C823 Number Date of 1965 Referring Vicenta OWENS Noe Physician Age 52 year(s) 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 Patricia Dillon, JOHNNIE, RDCS,RVT,RDMS Slab Worker Refugio Dos Santos Interpreting Alo Peralta MD [...] of Irena.: 3.33 cm Performing Organization Address City/State/[facility] Phone Number [facility] Urinalysis, Routine (07/08/2018 2:27 PM CDT) Color, UA Light Yellow [facility] Clarity, UA Clear [facility] Specific Harrell, UA 1.009 1.001 - 1.035 [facility] pH, UA 5.0 5.0 - 8.0 [facility] Protein, UA Negative Negative [facility] Glucose, UA Negative Negative [facility] Ketones, UA Negative Negative [facility] Bilirubin, UA Negative Negative [facility] Blood, UA Moderate (A) Negative [facility] Nitrite, UA Negative Negative [facility] Leukocytes, UA Negative Negative [facility] Urobilinogen, UA 0.2 0.2 - 1.0 mg/dL [facility] RBC, UA 3 /HPF [facility] WBC, UA 1 /HPF [facility] Bacteria, UA Occasional [facility] Mucus Occasional [facility] Squam Epithel, UA <1 /HPF [facility] Hyaline Casts, UA 2 /LPF [facility] Specimen Source [facility] Specimen Urine Performing Organization Address City/State/Zipcode Phone Number [address] [address] [place] TSH/T4 if indicated (07/08/2018 2:12 PM CDT) TSH 2.11 0.35 - 4.94 uIU/mL [facility] Specimen Blood Performing Organization Address City/[facility] Phone Number [address] [address] [place] HIV-1 Antigen with HIV-1/2 Antibody (07/08/2018 2:12 PM CDT) HIV-1 Antigen with HIV 1&2 NON-REACTIVE Nonreactive [facility] Specimen Blood Performing Organization Address City/[facility]/Zipcode Phone Number [address] [address] [place] Toxicology screen, serum (07/08/2018 2:12 PM CDT) DRUG TEST, GENERAL see note [facility], Comment: [facility] URINE,[facility] The following compounds were detected: Cotinine (Nicotine Metabolite) Caffeine Methamphetamine Dextrorphan Salicylic Acid For a list of compounds and limits of detection go to: http://education.StubHub/faq/GZD199 This test was developed and its analytical performance characteristics have been determined by [employer] [place], [place]. It has not been cleared or [...] Specimen Blood Narrative Performed At Performing Lab [facility] [address] [facility], [address] [place] [address] Dr. [place]Warm [place], [place] Yasmin Culp MD, PhD Performing Organization Address City/[facility] Phone [place] [address] [facility]ORPORATED [id number] [facility] Prothrombin time/INR (07/08/2018 2:12 PM CDT) Protime 14.6 11.7 - 14.7 seconds [facility] INR 1.1 <=5.9 [facility] Specimen Blood Narrative Performed At [facility] RECOMMENDED COUMADIN/WARFARIN INR THERAPY RANGES STANDARD DOSE: 2.0 - 3.0 Includes: PROPHYLAXIS for venous thrombosis, systemic embolization; TREATMENT for venous thrombosis and/or pulmonary embolus. HIGH RISK: Target INR is 2.5-3.5 for patients with mechanical heart valves. Performing Organization Address [facility] Phone Number [address] [address] CENTER B-type Natriuretic Factor (BNP) (07/08/2018 2:12 PM CDT) BNP 3,274 (H) 0 - 100 pg/mL [facility] Specimen Blood Performing Organization Address [facility] Phone Number [place] [phone] [place] [address] CENTER Comprehensive metabolic panel (07/08/2018 2:12 PM CDT) Protein, Total 7.5 6.0 - 8.3 gm/dL [facility] Albumin 4.0 3.5 - 5.0 g/dL [facility] Alkaline Phosphatase 92 40 - 150 U/L [facility] Total Bilirubin 0.9 0.2 - 1.2 mg/dL [facility] Sodium 135 (L) 136 - 145 meq/L [facility] Potassium 3.8 3.5 - 5.1 meq/L [facility] Chloride 103 98 - 107 meq/L [facility] CO2 21 (L) 22 - 29 meq/L [facility] BUN 21 7 - 21 mg/dL [facility] Creatinine 1.02 0.57 - 1.25 mg/dL [facility] Glucose 107 (H) 70 - 105 mg/dL [facility] Calcium 8.8 8.4 - 10.2 mg/dL [facility] AST 91 (H) 5 - 34 U/L [facility] ALT 22 6 - 55 U/L [facility] EGFR 57Comment: ESTIMATED GFR mL/min/1.[address] [facility] IS NOT ACCURATE [facility] CREATININE CLEARANCE IN PREDICTING GLOMERULAR FILTRATION RATE. ESTIMATED GFR IS NOT APPLICABLE FOR DIALYSIS PATIENTS. Specimen Blood Performing Organization Address City/State/Zipcode Phone Number [facility] [address] [place] [address] CENTER XR chest 1 view portable / bedside (07/08/2018 1:39 PM CDT) Narrative Performed At FINAL REPORT [employer] EXAM: Frontal chest radiograph HISTORY PROVIDED: Evaluate [...] MD Report Verified Date/Time:07/08/2018 14:02:57 Reading Location: [facility] Reading Room Procedure Note Interface, External Ris [...] Report Verified Date/Time: 07/08/2018 14:02:57 Reading Location: [facility] Reading Room Performing Organization Address City/State/Zipcode Phone Number GE RIS ECG 12 lead (07/08/2018 1:04 PM CDT) Narrative Performed At Ventricular Rate 94 BPM [facility] MUSE Atrial Rate 94 BPM P-R Interval 136 ms QRS Duration 114 ms Q-T Interval 420 ms QTC Calculation(Bazett) 525 ms P [place] 20 degrees R [place] -43 degrees T [place] 85 degrees Normal sinus rhythm Possible Left [...] 420 ms QTC Calculation(Bazett) 525 ms P [place] 20 degrees R [place] -43 degrees T [place] 85 degrees Normal sinus rhythm Possible Left atrial enlargement Left axis deviation Left ventricular hypertrophy + repolarization changes Nonspecific ST and T wave abnormality Prolonged QT Abnormal ECG No previous ECGs available Confirmed by MD BOWLES YOCHAI ([id number]) on 07/09/2018 6:31:51 AM Performing Organization Address City/State/Zipcode Phone Number GE MUSE after 08/30/2017 Insurance Payer Benefit Plan / Group Subscriber ID Type Phone Address MEDICARE MEDICARE A B xxxxxxxxxxx Medicare
--- OUTSIDE RECORDS SUMMARY | 2018-08-31 06:30 | XMS REPORT ---
:1965 [facility] Address [address] [place] [address] Care Team Providers Name Role Phone MEGHAN GILBERT Unavailable Unavailable Problems This patient has no known problems. Allergies, Adverse Reactions, Alerts This patient has no known allergies or adverse reactions. Medications This patient has no known medications. Results Test Description Test Time Test Comments Text Results Atomic Results Result Comments MAGNESIUM 2018-07-11 05:29:00 Test Item Value Reference Range Comments MAGNESIUM (BEAKER) (test hkjo=128) 2.3 mg/dL 1.6-2.6 BASIC METABOLIC [id number] 05:29:00 Test Item Value Reference Range Comments SODIUM (BEAKER) (test 138 meq/L 136-145 hctk=066) POTASSIUM (BEAKER) (test 4.5 meq/L 3.5-5.1 lrxc=552) CHLORIDE (BEAKER) (test 107 meq/L 98-107 zrkk=171) CO2 (BEAKER) (test 24 meq/L 22-29 rcnd=754) BLOOD UREA NITROGEN 22 mg/dL 7-21 (BEAKER) (test abfw=313) CREATININE (BEAKER) (test 0.96 mg/dL 0.57-1.25 sgtl=320) GLUCOSE RANDOM (BEAKER) 101 mg/dL 70-105 (test bmgd=698) CALCIUM (BEAKER) (test 8.5 mg/dL 8.4-10.2 ylrx=783) EGFR (BEAKER) (test 62 mL/min/1.73 sq m ESTIMATED GFR IS NOT rlyj=2481) ACCURATE CREATININE CLEARANCE IN PREDICTING GLOMERULAR FILTRATION RATE. ESTIMATED GFR IS NOT APPLICABLE FOR DIALYSIS PATIENTS. [id number] 04:51:00 Test Item Value Reference Range Comments PARTIAL THROMBOPLASTIN TIME (BEAKER) (test 90.5 seconds 22.5-36.0 rrva=441) CBC W/PLT COUNT & AUTO [id number] 04:43:00 Test Item Value Reference Range Comments WHITE BLOOD CELL COUNT (BEAKER) (test spki=995) 8.7 K/ L 3.5-10.5 RED BLOOD CELL COUNT (BEAKER) (test vxkd=498) 4.13 M/ L 3.93-5.22 HEMOGLOBIN (BEAKER) (test aupd=054) 12.4 GM/DL 11.2-15.7 HEMATOCRIT (BEAKER) (test vtgz=773) 39.1 % 34.1-44.9 MEAN CORPUSCULAR VOLUME (BEAKER) (test fjih=403) 94.7 fL 79.4-94.8 MEAN CORPUSCULAR HEMOGLOBIN (BEAKER) (test 30.0 pg 25.6-32.2 dpmn=160) MEAN CORPUSCULAR HEMOGLOBIN CONC (BEAKER) (test 31.7 GM/DL 32.2-35.5 pbff=870) RED CELL DISTRIBUTION WIDTH (BEAKER) (test 13.9 % 11.7-14.4 aztb=566) PLATELET COUNT (BEAKER) (test sspb=647) 262 K/CU MM 150-450 MEAN PLATELET VOLUME (BEAKER) (test lbal=505) 11.7 fL 9.4-12.3 NUCLEATED RED BLOOD CELLS (BEAKER) (test 0 /100 WBC 0-0 jbxu=776) NEUTROPHILS RELATIVE PERCENT (BEAKER) (test 49 % ttur=772) LYMPHOCYTES RELATIVE PERCENT (BEAKER) (test 40 % ynyk=134) MONOCYTES RELATIVE PERCENT (BEAKER) (test 8 % jwkw=535) EOSINOPHILS RELATIVE PERCENT (BEAKER) (test 2 % ueui=156) BASOPHILS RELATIVE PERCENT (BEAKER) (test 1 % qleu=457) NEUTROPHILS ABSOLUTE COUNT (BEAKER) (test 4.25 K/ L 1.56-6.13 payq=411) LYMPHOCYTES ABSOLUTE COUNT (BEAKER) (test 3.50 K/ L 1.18-3.74 mnkw=563) MONOCYTES ABSOLUTE COUNT (BEAKER) (test 0.66 K/ L 0.24-0.36 flrh=585) EOSINOPHILS ABSOLUTE COUNT (BEAKER) (test 0.19 K/ L 0.04-0.36 cwtj=487) BASOPHILS ABSOLUTE COUNT (BEAKER) (test 0.06 K/ L 0.01-0.08 nvje=071) IMMATURE GRANULOCYTES-RELATIVE PERCENT (BEAKER) 0 % 0-1 (test pcty=9458) [id number] 13:05:00 Test Item Value Reference Range Comments PARTIAL THROMBOPLASTIN TIME (BEAKER) (test 83.7 seconds 22.5-36.0 zehq=954) [id number] 06:08:00 Test Item Value Reference Range Comments MAGNESIUM (BEAKER) (test bbne=091) 2.4 mg/dL 1.6-2.6 BASIC METABOLIC [id number] 06:08:00 Test Item Value Reference Range Comments SODIUM (BEAKER) (test 138 meq/L 136-145 irjy=847) POTASSIUM (BEAKER) (test 4.2 meq/L 3.5-5.1 badp=322) CHLORIDE (BEAKER) (test 107 meq/L 98-107 aahd=989) CO2 (BEAKER) (test 25 meq/L 22-29 clnc=523) BLOOD UREA NITROGEN 24 mg/dL 7-21 (BEAKER) (test dyms=135) CREATININE (BEAKER) (test 0.85 mg/dL 0.57-1.25 chbj=360) GLUCOSE RANDOM (BEAKER) 145 mg/dL 70-105 (test lplg=382) CALCIUM (BEAKER) (test 8.3 mg/dL 8.4-10.2 tarr=789) EGFR (BEAKER) (test 71 mL/min/1.73 sq m ESTIMATED GFR IS NOT gari=8377) ACCURATE CREATININE CLEARANCE IN PREDICTING GLOMERULAR FILTRATION RATE. ESTIMATED GFR IS NOT APPLICABLE FOR DIALYSIS PATIENTS. [id number] 05:54:00 Test Item Value Reference Range Comments PARTIAL THROMBOPLASTIN TIME (BEAKER) (test 74.6 seconds 22.5-36.0 huhn=602) CBC W/PLT COUNT & AUTO [id number] 05:39:00 Test Item Value Reference Range Comments WHITE BLOOD CELL COUNT (BEAKER) (test fans=795) 13.8 K/ L 3.5-10.5 RED BLOOD CELL COUNT (BEAKER) (test vezn=714) 3.97 M/ L 3.93-5.22 HEMOGLOBIN (BEAKER) (test oyen=428) 12.0 GM/DL 11.2-15.7 HEMATOCRIT (BEAKER) (test cfkf=914) 36.8 % 34.1-44.9 MEAN CORPUSCULAR VOLUME (BEAKER) (test ghuv=325) 92.7 fL 79.4-94.8 MEAN CORPUSCULAR HEMOGLOBIN (BEAKER) (test 30.2 pg 25.6-32.2 gxgf=847) MEAN CORPUSCULAR HEMOGLOBIN CONC (BEAKER) (test 32.6 GM/DL 32.2-35.5 mney=430) RED CELL DISTRIBUTION WIDTH (BEAKER) (test 13.6 % 11.7-14.4 ktzg=852) PLATELET COUNT (BEAKER) (test afbt=429) 250 K/CU MM 150-450 MEAN PLATELET VOLUME (BEAKER) (test qhcz=113) 11.2 fL 9.4-12.3 NUCLEATED RED BLOOD CELLS (BEAKER) (test 0 /100 WBC 0-0 ubjl=129) NEUTROPHILS RELATIVE PERCENT (BEAKER) (test 81 % ekme=632) LYMPHOCYTES RELATIVE PERCENT (BEAKER) (test 14 % oqit=763) MONOCYTES RELATIVE PERCENT (BEAKER) (test 4 % rvjr=399) EOSINOPHILS RELATIVE PERCENT (BEAKER) (test 0 % wqva=460) BASOPHILS RELATIVE PERCENT (BEAKER) (test 0 % pjet=834) NEUTROPHILS ABSOLUTE COUNT (BEAKER) (test 11.16 K/ L 1.56-6.13 rldh=555) LYMPHOCYTES ABSOLUTE COUNT (BEAKER) (test 1.87 K/ L 1.18-3.74 less=764) MONOCYTES ABSOLUTE COUNT (BEAKER) (test 0.61 K/ L 0.24-0.36 opkl=370) EOSINOPHILS ABSOLUTE COUNT (BEAKER) (test 0.04 K/ L 0.04-0.36 vecu=642) BASOPHILS ABSOLUTE COUNT (BEAKER) (test 0.02 K/ L 0.01-0.08 lcce=876) IMMATURE GRANULOCYTES-RELATIVE PERCENT (BEAKER) 0 % 0-1 (test lsil=9715) [id number] 00:05:00 Test Item Value Reference Range Comments PARTIAL THROMBOPLASTIN TIME (BEAKER) (test 46.2 seconds 22.5-36.0 wnst=958) [id number] 17:43:00 Test Item Value Reference Range Comments PARTIAL THROMBOPLASTIN TIME (BEAKER) (test 57.0 seconds 22.5-36.0 qqsi=550) [id number] 09:08:00 Test Item Value Reference Range Comments PARTIAL THROMBOPLASTIN TIME (BEAKER) (test 44.5 seconds 22.5-36.0 xcgr=733) [id number] 05:33:00 Test Item Value Reference Range Comments FERRITIN (BEAKER) (test eold=154) 88 ng/mL 5-275 TROPONIN [id number] 05:19:00 Test Item Value Reference Range Comments TROPONIN I (BEAKER) (test ydho=259) 6.35 ng/mL 0.00-0.03 Troponin I (TnI) levels [...] failure, acidosis, acute neurological disease, and persistent tachyarrhythmia.[id number] 04:57:00 Test Item Value Reference Range Comments MAGNESIUM (BEAKER) (test usuu=551) 2.5 mg/dL 1.6-2.6 BASIC METABOLIC [id number] 04:57:00 Test Item Value Reference Range Comments SODIUM (BEAKER) (test 137 meq/L 136-145 wqxt=870) POTASSIUM (BEAKER) (test 4.2 meq/L 3.5-5.1 avnh=944) CHLORIDE (BEAKER) (test 105 meq/L 98-107 hfud=933) CO2 (BEAKER) (test 23 meq/L 22-29 owoi=684) BLOOD UREA NITROGEN 20 mg/dL 7-21 (BEAKER) (test lmln=444) CREATININE (BEAKER) (test 0.82 mg/dL 0.57-1.25 otby=969) GLUCOSE RANDOM (BEAKER) 158 mg/dL 70-105 (test oagw=882) CALCIUM (BEAKER) (test 8.7 mg/dL 8.4-10.2 thrh=486) EGFR (BEAKER) (test 74 mL/min/1.73 sq m ESTIMATED GFR IS NOT hmbm=6866) ACCURATE CREATININE CLEARANCE IN PREDICTING GLOMERULAR FILTRATION RATE. ESTIMATED GFR IS NOT APPLICABLE FOR DIALYSIS PATIENTS. LIPID [id number] 04:57:00 Test Item Value Reference Range Comments TRIGLYCERIDES (BEAKER) (test ibhs=747) 60 mg/dL CHOLESTEROL (BEAKER) (test ubzy=812) 162 mg/dL HDL CHOLESTEROL (BEAKER) (test qqgz=568) 44 mg/dL LDL CHOLESTEROL CALCULATED (BEAKER) (test 106 mg/dL vehm=234) Triglyceride Reference Range: Low Risk <150 Borderline [...] Value Reference Range Comments IRON (BEAKER) (test kikd=144) 40 ug/dL 40-160 TOTAL IRON BINDING CAPACITY (BEAKER) (test 398 ug/dL 250-450 vnyd=518) IRON % SATURATION (2) (BEAKER) (test kznn=3943) 10 % 20-55 CBC W/PLT COUNT & AUTO [id number] 04:43:00 Test Item Value Reference Range Comments WHITE BLOOD CELL COUNT (BEAKER) (test uxvj=635) 5.8 K/ L 3.5-10.5 RED BLOOD CELL COUNT (BEAKER) (test acsf=862) 4.18 M/ L 3.93-5.22 HEMOGLOBIN (BEAKER) (test ezag=059) 12.7 GM/DL 11.2-15.7 HEMATOCRIT (BEAKER) (test ppvf=794) 38.4 % 34.1-44.9 MEAN CORPUSCULAR VOLUME (BEAKER) (test vrya=184) 91.9 fL 79.4-94.8 MEAN CORPUSCULAR HEMOGLOBIN (BEAKER) (test 30.4 pg 25.6-32.2 kgst=453) MEAN CORPUSCULAR HEMOGLOBIN CONC (BEAKER) (test 33.1 GM/DL 32.2-35.5 gqjp=693) RED CELL DISTRIBUTION WIDTH (BEAKER) (test 13.4 % 11.7-14.4 fzwn=078) PLATELET COUNT (BEAKER) (test zaby=707) 234 K/CU MM 150-450 MEAN PLATELET VOLUME (BEAKER) (test hlrj=284) 11.5 fL 9.4-12.3 NUCLEATED RED BLOOD CELLS (BEAKER) (test 0 /100 WBC 0-0 vdyj=392) NEUTROPHILS RELATIVE PERCENT (BEAKER) (test 87 % iurr=693) LYMPHOCYTES RELATIVE PERCENT (BEAKER) (test 10 % tdes=046) MONOCYTES RELATIVE PERCENT (BEAKER) (test 2 % zccc=976) EOSINOPHILS RELATIVE PERCENT (BEAKER) (test 0 % hkcb=991) BASOPHILS RELATIVE PERCENT (BEAKER) (test 0 % ksgw=914) NEUTROPHILS ABSOLUTE COUNT (BEAKER) (test 5.09 K/ L 1.56-6.13 xxvz=705) LYMPHOCYTES ABSOLUTE COUNT (BEAKER) (test 0.58 K/ L 1.18-3.74 opdn=678) MONOCYTES ABSOLUTE COUNT (BEAKER) (test 0.11 K/ L 0.24-0.36 emgr=339) EOSINOPHILS ABSOLUTE COUNT (BEAKER) (test 0.01 K/ L 0.04-0.36 dqrz=199) BASOPHILS ABSOLUTE COUNT (BEAKER) (test 0.01 K/ L 0.01-0.08 nkmh=471) IMMATURE GRANULOCYTES-RELATIVE PERCENT (BEAKER) 0 % 0-1 (test elyx=2207) [id number] 01:46:00 Test Item Value Reference Range Comments PARTIAL THROMBOPLASTIN TIME (BEAKER) (test 39.6 seconds 22.5-36.0 orth=547) TSH/FREE T4 IF [id number] 15:20:00 Test Item Value Reference Range Comments THYROID STIMULATING HORMONE (BEAKER) (test 2.11 uIU/mL 0.35-4.94 ayza=962) HIV-1 ANTIGEN WITH HIV-1/2 [id number] 15:20:00 Test Item Value Reference Range Comments HIV-1 ANTIGEN WITH HIV 1\T\2 ANTIBODY (2) Nonreactive Nonreactive (BEAKER) (test zuwf=0607) TROPONIN [id number] 15:14:00 Test Item Value Reference Range Comments TROPONIN I (BEAKER) (test zfnl=575) 18.70 ng/mL 0.00-0.03 Troponin I (TnI) levels [...] acute neurological disease, and persistent tachyarrhythmia.URINALYSIS W/ [id number] 15: 11:00 Test Item Value Reference Range Comments COLOR (BEAKER) (test wzbu=203) Light Yellow CLARITY (BEAKER) (test upon=904) Clear SPECIFIC GRAVITY UA (BEAKER) (test mndf=323) 1.009 1.001-1.035 PH UA (BEAKER) (test nftm=381) 5.0 5.0-8.0 PROTEIN UA (BEAKER) (test gndf=167) Negative Negative GLUCOSE UA (BEAKER) (test qznb=573) Negative Negative KETONES UA (BEAKER) (test bush=807) Negative Negative BILIRUBIN UA (BEAKER) (test ghgt=017) Negative Negative BLOOD UA (BEAKER) (test szfb=707) Moderate Negative NITRITE UA (BEAKER) (test rjtv=158) Negative Negative LEUKOCYTE ESTERASE UA (BEAKER) (test djuf=525) Negative Negative UROBILINOGEN UA (BEAKER) (test myxx=080) 0.2 mg/dL 0.2-1.0 RBC UA (BEAKER) (test exkz=013) 3 /HPF WBC UA (BEAKER) (test zngq=418) 1 /HPF BACTERIA (BEAKER) (test ogcu=958) Occasional MUCUS (BEAKER) (test jnnu=0258) Occasional SQUAMOUS EPITHELIAL (BEAKER) (test bjpy=158) < /HPF HYALINE CASTS (BEAKER) (test npqr=187) 2 /LPF SOURCE(BEAKER) (test oekw=0130) B-TYPE NATRIURETIC FACTOR (BNP)2018-07-08 15:05:00 Test Item Value Reference Range Comments B-TYPE NATRIURETIC PEPTIDE (BEAKER) (test 3274 pg/mL 0-100 ghza=087) [id number] 15:03:00 Test Item Value Reference Range Comments MAGNESIUM (BEAKER) (test jlus=690) 2.0 mg/dL 1.6-2.6 COMPREHENSIVE METABOLIC [id number] 15:03:00 Test Item Value Reference Range Comments TOTAL PROTEIN (BEAKER) 7.5 gm/dL 6.0-8.3 (test qewk=777) ALBUMIN (BEAKER) (test 4.0 g/dL 3.5-5.0 uqki=4767) ALKALINE PHOSPHATASE 92 U/L 40-150 (BEAKER) (test mnpw=075) BILIRUBIN TOTAL (BEAKER) 0.9 mg/dL 0.2-1.2 (test vkfp=304) SODIUM (BEAKER) (test 135 meq/L 136-145 okbe=398) POTASSIUM (BEAKER) (test 3.8 meq/L 3.5-5.1 ruba=976) CHLORIDE (BEAKER) (test 103 meq/L 98-107 ogmg=284) CO2 (BEAKER) (test 21 meq/L 22-29 igum=847) BLOOD UREA NITROGEN 21 mg/dL 7-21 (BEAKER) (test bemw=522) CREATININE (BEAKER) (test 1.02 mg/dL 0.57-1.25 vkry=708) GLUCOSE RANDOM (BEAKER) 107 mg/dL 70-105 (test onsq=820) CALCIUM (BEAKER) (test 8.8 mg/dL 8.4-10.2 joxs=589) AST (SGOT) (BEAKER) (test 91 U/L 5-34 zgwo=096) ALT (SGPT) (BEAKER) (test 22 U/L 6-55 gnmf=270) EGFR (BEAKER) (test 57 mL/min/1.73 sq m ESTIMATED GFR IS NOT puvz=0023) ACCURATE CREATININE CLEARANCE IN PREDICTING GLOMERULAR FILTRATION RATE. ESTIMATED GFR IS NOT APPLICABLE FOR DIALYSIS PATIENTS. [id number] 14:45:00 Test Item Value Reference Range Comments PARTIAL THROMBOPLASTIN TIME (BEAKER) (test 33.7 seconds 22.5-36.0 zoqr=302) PROTHROMBIN TIME/[id number] 14:44:00 Test Item Value Reference Range Comments PROTIME (BEAKER) (test kyfd=719) 14.6 seconds 11.7-14.7 INR (BEAKER) (test dlly=413) 1.1 <=5.9 RECOMMENDED COUMADIN/WARFARIN INR THERAPY RANGESSTANDARD DOSE: 2.0 - 3.0 Includes: PROPHYLAXIS forvenous thrombosis, systemic embolization; TREATMENT for venous thrombosis and/or pulmonary embolus.HIGH RISK: Target INR is 2.5-3.5 for patients with mechanical heart valves.CBC W/PLT COUNT & AUTO [id number] 14:36:00 Test Item Value Reference Range Comments WHITE BLOOD CELL COUNT (BEAKER) (test jmbw=655) 8.5 K/ L 3.5-10.5 RED BLOOD CELL COUNT (BEAKER) (test lkbd=269) 4.13 M/ L 3.93-5.22 HEMOGLOBIN (BEAKER) (test ddvj=806) 12.6 GM/DL 11.2-15.7 HEMATOCRIT (BEAKER) (test mngb=165) 37.9 % 34.1-44.9 MEAN CORPUSCULAR VOLUME (BEAKER) (test yviw=592) 91.8 fL 79.4-94.8 MEAN CORPUSCULAR HEMOGLOBIN (BEAKER) (test 30.5 pg 25.6-32.2 agru=838) MEAN CORPUSCULAR HEMOGLOBIN CONC (BEAKER) (test 33.2 GM/DL 32.2-35.5 sqcj=417) RED CELL DISTRIBUTION WIDTH (BEAKER) (test 13.5 % 11.7-14.4 pptb=684) PLATELET COUNT (BEAKER) (test cixu=489) 248 K/CU MM 150-450 MEAN PLATELET VOLUME (BEAKER) (test wukf=610) 11.1 fL 9.4-12.3 NUCLEATED RED BLOOD CELLS (BEAKER) (test 0 /100 WBC 0-0 rmvv=765) NEUTROPHILS RELATIVE PERCENT (BEAKER) (test 59 % eftj=860) LYMPHOCYTES RELATIVE PERCENT (BEAKER) (test 30 % vpxi=706) MONOCYTES RELATIVE PERCENT (BEAKER) (test 7 % nlfj=946) EOSINOPHILS RELATIVE PERCENT (BEAKER) (test 3 % debw=804) BASOPHILS RELATIVE PERCENT (BEAKER) (test 1 % soqw=419) NEUTROPHILS ABSOLUTE COUNT (BEAKER) (test 5.05 K/ L 1.56-6.13 ajdb=938) LYMPHOCYTES ABSOLUTE COUNT (BEAKER) (test 2.57 K/ L 1.18-3.74 vvwo=995) MONOCYTES ABSOLUTE COUNT (BEAKER) (test 0.58 K/ L 0.24-0.36 xehl=089) EOSINOPHILS ABSOLUTE COUNT (BEAKER) (test 0.24 K/ L 0.04-0.36 vcsw=265) BASOPHILS ABSOLUTE COUNT (BEAKER) (test 0.06 K/ L 0.01-0.08 wzdn=783) IMMATURE GRANULOCYTES-RELATIVE PERCENT (BEAKER) 0 % 0-1 (test hwvi=9715) RAD, CHEST, 1 VIEW, NON [id number] 14:02:00Reason for exam:->eval for pulmonary edemaIs the [...] Verified Date/ Time: 07/08/2018 14:02:57 Reading Location: [facility] Room
[2018-08-31 07:23] LABS: Absolute Monocytes 0.5 K/uL (0.1-1.3); Absolute Neutrophil 7.4 K/uL (1.8-8.0); Basophils % 0.6 % (0-1.3); Eosinophils % 0.9 % (0-4.4); Hematocrit 37.3 % (36.0-45.0); Lymphocytes % 10.8 % (15.3-44.8); MCH 29.7 pg (27.0-35.0); MCV 88.5 fL (80-100); MPV 9.9 fL (7.6-11.3); Monocytes % 5.9 % (3.3-12.3); RBC Red Blood Cell Count 4.22 M/uL (3.86-4.86)
[2018-08-31 07:23] LABS: Arterial Blood Carboxyhemoglob 1.4 % (0-1.5); Blood Gas Oxyhemoglobin 92.6 % (94-97); Blood O2 Saturation 94.7 % (92-98.5)
[2018-08-31] MEDS ORDERED: FUROSEMIDE 20 MG/ 2ML VIAL ONE (07:27)
[2018-08-31] MEDS ORDERED: IPRATROPIUM BROM 0.5MG/2.5ML ONE (07:27)
[2018-08-31] MEDS ORDERED: ALBUTEROL 2.5 MG/3 ML NEB SOL ONE (07:27)
[2018-08-31] MEDS ORDERED: ACETAMINOPHEN 325 MG TABLET ONE (07:28)
[2018-08-31 07:38] LABS: ALT/SGPT 28 U/L (12-78); AST/SGOT 27 U/L (15-37); Alkaline Phosphatase 97 U/L (45-117); BUN Blood Urea Nitrogen 27 mg/dL (7-18); Bicarbonate 27 mmol/L (21-32); Bilirubin Direct 0.3 mg/dL (0-0.2); Bilirubin Total 0.6 mg/dL (0.2-1.0); CKMB Creatine Kinase MB < 1.0 ng/mL (0.3-3.6); Creatine Phosphokinase 220 U/L (26-192); Glucose Level 137 mg/dL (74-106); Lipase 66 U/L (73-393); Magnesium 2.2 mg/dL (1.8-2.4); NT PRO-BNP 8358 pg/mL (<125); Potassium 3.3 mmol/L (3.5-5.1); Protein, Total 7.3 g/dL (6.4-8.2); Sodium Level 137 mmol/L (136-145); Troponin (Emerg Dept Use Only) 0.06 ng/mL (0.0-0.045)
[2018-08-31 08:01] LABS: Protime INR 1.17
--- NOTE | 2018-08-31 08:22 | ER ---
Nurse's Notes [facility] Name: Reat Anderson Age: 52 yrs Sex: Female : 1965 Arrival Date: 08/31/2018 Time: 06:28 Bed 13 Private MD: Diagnosis: Unspecified systolic (congestive) heart failure Presentation: 08/31 06:25 Presenting complaint: EMS states: Severe shortness of breath since a couple of weeks cc3 now. Transition of care: patient was not received from another setting of care. Onset of symptoms was August 31, 2018. Risk Assessment: Do you want to hurt yourself or someone else? Patient reports no desire to harm self or others. Initial Sepsis Screen: Does the patient meet any 2 criteria? No. Patient's initial sepsis screen is negative. Does the patient have a suspected source of infection? No. Patient's initial sepsis screen is negative. Care prior to arrival: Medication(s) given: Albuterol Neb Atrovent Neb x 1. 06:25 Method Of Arrival: EMS: [facility] cc3 06:25 Acuity: CASSANDRA 3 cc3 Triage Assessment: 06:25 General: Appears in no apparent distress. uncomfortable, Behavior is calm, cooperative, cc3 appropriate for age. Pain: Complains of pain in chest. EENT: No signs and/or symptoms were reported regarding the EENT system. Neuro: Level of Consciousness is awake, alert, obeys commands, Oriented to person, place, time, situation, Appropriate for age. Cardiovascular: Reports nausea, shortness of breath, since a couple of weeks now. Respiratory: Reports shortness of breath at rest on exertion since a couple of weeks cough that is non-productive, Onset: The symptoms/episode began/occurred this morning, the patient has severe shortness of breath. GI: Abdomen is round non-distended. : No signs and/or symptoms were reported regarding the genitourinary system. Derm: No signs and/or symptoms reported regarding the dermatologic system. Musculoskeletal: Circulation, motion, and sensation intact. Range of motion: intact in all extremities. DOCUMENT SPECIALIST: 06:25 LMP 08/08/2018 cc3 Historical: - Allergies: 06:25 Clindamycin; cc3 - Home Meds: 06:25 Lasix Oral [Active]; lisinopril Oral [Active]; Metoprolol Tartrate Oral [Active]; cc3 Spironolactone Oral [Active]; Trezix Oral [Active]; - PMHx: 06:25 cardiomyopathy; CHF; EF 16%; gastric ulcers; Grand mal seizure; Myocardial infarction; cc3 pulmonary fibrosis; PVCs; - Immunization history:: Adult Immunizations up to date, Flu vaccine is not up to date. Patient has never been vaccinated. - Social history:: Smoking status: Patient/guardian denies using tobacco, but has a distant history of tobacco abuse. - Ebola Screening: : No symptoms or risks identified at this time. Screenin:25 Abuse screen: Denies threats or abuse. Denies injuries from another. Nutritional cc3 screening: No deficits noted. Tuberculosis screening: No symptoms or risk factors identified. Fall Risk Ambulatory Aid- None/Bed Rest/Nurse Assist (0 pts). Gait- Normal/Bed Rest/Wheelchair (0 pts) Mental Status- Oriented to own ability (0 pts). Assessment: 07:00 General: RECD REPORT FROM DAPHNE HARRIS. 52YO WF P/W SOB VIA EMS. PT CURRENTLY IN XRAY. bp 07:10 General: Appears in no apparent distress. uncomfortable, Behavior is cooperative, bp appropriate for age, anxious, PT RETURNED FROM XRAY. Pain: Complains of pain in head. Neuro: Level of Consciousness is awake, alert, obeys commands. Cardiovascular: Rhythm is sinus arrythmia. Respiratory: Airway is patent Respiratory effort is even, labored, Respiratory pattern is regular, symmetrical, Breath sounds with crackles bilaterally. GI: No signs and/or symptoms were reported involving the gastrointestinal system. : No signs and/or symptoms were reported regarding the genitourinary system. EENT: No deficits noted. Derm: No signs and/or symptoms reported regarding the dermatologic system. Musculoskeletal: Circulation, motion, and sensation intact. Range of motion: intact in all extremities. 08:52 Reassessment: REPORT TO SHADIA Lester\ ANTHONY PANDYA. TRANSPORT PENDING. bp 09:30 Reassessment: EMS AT B/S FOR TRANSPORT. PT EVELIN. bp Vital Signs: 06:25 BP 97 / 68; Pulse 95; Resp 18 S; Temp 99.1(O); Pulse Ox 98% on R/A; Weight 81.65 kg cc3 (R); Height 5 ft. 5 in. (165.10 cm) (R); 07:15 BP 98 / 69; Pulse 92; Resp 20; Pulse Ox 97% on R/A; bp 07:42 BP 87 / 72; Pulse 95; Resp 20; Pulse Ox 100% on 14% Nebulizer Mask; bp 08:30 BP 100 / 64; Pulse 82; Resp 20; Pulse Ox 96% on 2 lpm NC; bp 09:30 BP 90 / 56; Pulse 79; Resp 20; Pulse Ox 93% on R/A; bp 06:25 Body Mass Index 29.95 (81.65 kg, 165.10 cm) cc3 ED Course: 06:25 Arm band placed on right wrist. cc3 06:25 Patient has correct armband on for positive identification. Placed in gown. Bed in low cc3 position. Call light in reach. Side rails up X2. security monitor on. Pulse ox on. NIBP on. 06:25 Maintain EMS IV. Dressing intact. Site clean \T\ dry. Gauge \T\ site: gauge 20 at the [facility]. cc 3 06:28 Patient arrived in ED. ds1 06:49 Triage completed. cc3 06:50 Patient moved to radiology via wheelchair. sg4 06:58 X-ray completed. Patient tolerated procedure well. sg4 06:58 Patient moved back from radiology. sg4 07:00 XRAY Chest Pa And Lat (2 Views) In Process Unspecified. EDMS 07:00 Tj Gaxiola RN is Primary Nurse. bp 07:00 [facility] snw 07:00 Hari Tran MD is Attending Physician. snw 07:00 Report given to STEVEN Spencer. cc3 07:13 BMP Sent. bp 07:13 CBC with Diff Sent. bp 08:06 Notified Nurse Practitioner and/or Physician Paster Hat Lining of a critical lab result(s), ss DDIMER 1322. 09:30 No provider procedures requiring assistance completed. Patient transferred, IV remains bp in place. Administered Medications: 07:15 Drug: Albuterol - atroVENT (3:1) (2.5 mg - 0.5 mg) 3 ml Route: Nebulizer; bp 09:04 Follow up: Response: Marked relief of symptoms bp 07:15 Drug: Lasix 20 mg Route: IVP; Site: right antecubital; bp 07:39 Follow up: Response: No adverse reaction bp 07:15 Drug: Tylenol 650 mg Route: PO; bp 09:04 Follow up: Response: Pain is decreased bp 09:00 Drug: Zofran 4 mg Route: IVP; Site: right antecubital; bp 09:30 Follow up: Response: Nausea is decreased bp Outcome: 08:22 ER care complete, transfer ordered by snjocelyn 09:30 Transferred by ground EMS to [facility], Transfer form completed. bp 09:30 Condition: stable 09:30 Instructed on the need for transfer. 09:34 Patient left the ED. bp Signatures: Dispatcher [employer] EDMS Darby Nick, MAINTENANCE PERSON-C MAINTENANCE PERSON-Csnw Leonila Duncan ds1 Ewelina Rose RN RN Tj Arellano RN RN Daphne Winslow cc3 Naz Dunlap sg4
--- NOTE | 2018-08-31 08:22 | EDPHYS ---
Physician Documentation [facility] Name: Reta Anderson Age: 52 yrs Sex: Female : 1965 Arrival Date: 08/31/2018 Time: 06:28 Bed 13 Private MD: ED Physician Hari Tran HPI: 08/31 08:28 This 52 yrs old Female presents to ER via EMS with complaints of Shortness Of snw Breath. 08:28 The patient has shortness of breath at rest. Onset: The symptoms/episode began/occurred snw gradually, 3 week(s) ago, and became worse 3 day(s) ago, and became persistent. Duration: The symptoms are continuous. Associated signs and symptoms: Pertinent positives: non-productive cough, Pertinent negatives: chest pain, diaphoresis, dizziness, loss of consciousness. Severity of symptoms: At their worst the symptoms were moderate. The patient has experienced similar episodes in the past. It is unknown whether or not the patient has recently seen a physician. wears life vest until she can get pacer/defib implanted. 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 Patient has never been vaccinated. - Social history:: Smoking status: Patient/guardian denies using tobacco, but has a distant history of tobacco abuse. - Ebola Screening: : No symptoms or risks identified at this time. ROS: 08:22 Constitutional: Negative for fever, chills, and weight loss, Eyes: Negative for injury, snw pain, redness, and discharge, ENT: Negative for injury, pain, and discharge, Neck: Negative for injury, pain, and swelling. 08:22 Abdomen/GI: Negative for abdominal pain, nausea, vomiting, diarrhea, and constipation, Back: Negative for injury and pain, : Negative for injury, bleeding, discharge, and swelling, MS/Extremity: Negative for injury and deformity, Skin: Negative for injury, rash, and discoloration, Neuro: Negative for headache, weakness, numbness, tingling, and seizure, Psych: Negative for depression, anxiety, suicide ideation, homicidal ideation, and hallucinations. 08:22 Neck: Positive for "overload". 08:22 Cardiovascular: Positive for orthopnea, paroxysmal nocturnal dyspnea. 08:22 Respiratory: Positive for cough, shortness of breath, wheezing. Exam: 08:22 Head/Face: Normocephalic, atraumatic. Eyes: Pupils equal round and reactive to light, snw extra-ocular motions intact. Lids and lashes normal. Conjunctiva and sclera are non-icteric and not injected. Cornea within normal limits. Periorbital areas with no swelling, redness, or edema. ENT: Nares patent. No nasal discharge, no septal abnormalities noted. Tympanic membranes are normal and external auditory canals are clear. Oropharynx with no redness, swelling, or masses, exudates, or evidence of obstruction, uvula midline. Mucous membranes moist. Neck: Trachea midline, no thyromegaly or masses palpated, and no cervical lymphadenopathy. Supple, full range of motion without nuchal rigidity, or vertebral point tenderness. No Meningismus. 08:22 Abdomen/GI: Soft, non-tender, with normal bowel sounds. No distension or tympany. No guarding or rebound. No evidence of tenderness throughout. Back: No spinal tenderness. No costovertebral tenderness. Full range of motion. Skin: Warm, dry with normal turgor. Normal color with no rashes, no lesions, and no evidence of cellulitis, except as noted MS/ Extremity: Pulses equal, no cyanosis. Neurovascular intact. Full, normal range of motion. Neuro: Awake and alert, GCS 15, oriented to person, place, time, and situation. Cranial nerves II-XII grossly intact. Motor strength 5/5 in all extremities. Sensory grossly intact. Cerebellar exam normal. Normal gait. 08:22 Constitutional: The patient appears alert, awake, well groomed. 08:22 Chest/axilla: external defibrillator removed in ED. 08:22 Cardiovascular: Rate: normal, Rhythm: regular, Pulses: hx of Raynaud's, right great toe presently whitish in coloration, cool. Pt states this is her norm, Heart sounds: S3, Edema: is not appreciated, JVD: is noted bilaterally, to 2 cm. 08:22 Respiratory: mild respiratory distress is noted, Respirations: shallow respirations, that is moderate, halting speech. Vital Signs: 06:25 BP 97 / 68; Pulse 95; Resp 18 S; Temp 99.1(O); Pulse Ox 98% on R/A; Weight 81.65 kg cc3 (R); Height 5 ft. 5 in. (165.10 cm) (R); 07:15 BP 98 / 69; Pulse 92; Resp 20; Pulse Ox 97% on R/A; bp 07:42 BP 87 / 72; Pulse 95; Resp 20; Pulse Ox 100% on 14% Nebulizer Mask; bp 08:30 BP 100 / 64; Pulse 82; Resp 20; Pulse Ox 96% on 2 lpm NC; bp 09:30 BP 90 / 56; Pulse 79; Resp 20; Pulse Ox 93% on R/A; bp 06:25 Body Mass Index 29.95 (81.65 kg, 165.10 cm) cc3 MDM: 07:01 Patient medically screened. snw 08:22 Data reviewed: vital signs, nurses notes, lab test result(s), EKG, radiologic studies. snw Data interpreted: Pulse oximetry: on 3L(s) per nasal canula, is 100 %. Interpretation: acceptable. Counseling: I had a detailed discussion with the patient and/or guardian regarding: the historical points, exam findings, and any diagnostic results supporting the discharge/admit diagnosis, lab results, radiology results, the need to transfer to another facility, for higher level of care, [facility] not [facility] have the required specialist. 08:27 Physician consultation: Dr Mcclain was called at 08:27, was contacted at 08:27, regarding snw regarding transfer, to [facility]. Kindly accepts pt in transfer to [facility], Pt sees Dr. Wallace. 08/31 06:40 Order name: BMP ps1 08/31 06:40 Order name: CBC with Diff ps1 08/31 06:40 Order name: Ckmb; Complete Time: 07:48 ps1 08/31 06:40 Order name: CPK; Complete Time: 07:48 ps1 12/08 06:40 Order name: D-Dimer; Complete Time: 08:17 ps1 08/31 06:40 Order name: Hepatic Function; Complete Time: 07:48 ps1 08/31 06:40 Order name: Lipase; Complete Time: 07:48 ps1 08/31 06:40 Order name: Magnesium; Complete Time: 07:48 ps1 08/31 06:40 Order name: NT PRO-BNP; Complete Time: 07:48 ps1 08/31 06:40 Order name: PT-INR; Complete Time: 08:17 ps1 08/31 06:40 Order name: Ptt, Activated; Complete Time: 08:17 ps1 08/31 06:40 Order name: Troponin (emerg Dept Use Only); Complete Time: 07:48 ps1 08/31 06:41 Order name: Basic Metabolic Panel; Complete Time: 07:48 EDMS 08/31 06:41 Order name: CBC with Automated Diff; Complete Time: 07:48 EDMS 08 06:40 Order name: XRAY Chest Pa And Lat (2 Views); Complete Time: 13:14 ps1 08/31 06:40 Order name: EKG; Complete Time: 06:42 ps1 08/31 06:40 Order name: Cardiac monitoring; Complete Time: 06:45 ps1 08/31 06:40 Order name: EKG - Nurse/Tech; Complete Time: 06:46 ps1 08/31 06:40 Order name: IV Saline Lock; Complete Time: 06:46 ps1 08/31 06:40 Order name: Labs collected and sent; Complete Time: 07:13 ps1 08 06:40 Order name: O2 Per Protocol; Complete Time: 06:46 ps1 08/31 06:40 Order name: O2 Sat Monitoring; Complete Time: 06:46 ps1 08 07:07 Order name: ABG; Complete Time: 07:48 snw Administered Medications: 07:15 Drug: Albuterol - atroVENT (3:1) (2.5 mg - 0.5 mg) 3 ml Route: Nebulizer; bp 09:04 Follow up: Response: Marked relief of symptoms bp 07:15 Drug: Lasix 20 mg Route: IVP; Site: right antecubital; bp 07:39 Follow up: Response: No adverse reaction bp 07:15 Drug: Tylenol 650 mg Route: PO; bp 09:04 Follow up: Response: Pain is decreased bp 09:00 Drug: Zofran 4 mg Route: IVP; Site: right antecubital; bp 09:30 Follow up: Response: Nausea is decreased bp Disposition: 08/31/18 08:22 Transfer ordered to [facility]. Diagnosis is Unspecified systolic (congestive) heart failure. - Reason for transfer: Higher level of care. - Accepting physician is Dr. Mcclain. - Condition is Stable. - Problem is an acute exacerbation. - Symptoms are unchanged. Addendum: 09/02/2018 21:01 Co-signature as Attending Physician, Hari Tran MD Available for consultation at p s1 all times . Signatures: Dispatcher [employer] EDMS Darby Nick, CAMELIA-C FINAL ASSEMBLER-Csnw Tj Gaxiola, RN RN Hari Arteaga MD MD ps1 Daphne Wilde cc3 Corrections: (The following items were deleted from the chart) 08/31 09:33 08:22 08/31/2018 08:22 Transfer ordered to [facility]. Diagnosis is bp Unspecified systolic (congestive) heart failure. Reason for transfer: Higher level of care. Accepting physician is Dr. Mcclain. Condition is Stable. Problem is an acute exacerbation. Symptoms are unchanged. snw
[2018-08-31] MEDS ORDERED: ONDANSETRON 4 MG/2 ML VIAL ONE (08:29)
[2018-08-31 09:41] VITALS: BP 90/56; O2SAT 93
--- NOTE | 2018-08-31 10:19 | RAD REPORT ---
EXAM DESCRIPTION: Channing Arriola And Lat (2 Views)08/31/2018 7:00 am CLINICAL HISTORY: Shortness of breath COMPARISON: June 2018 FINDINGS: Mild bilateral pulmonary opacities Heart is moderately to markedly enlarged IMPRESSION: Mild CHF
--- NOTE | 2018-09-02 07:15 | EKG ---
Test Date: 2018-08-31 Test Time: 06:29:23 Sorting Machine Attendant: [place] MEASUREMENT RESULTS: Intervals: Rate: 94 SC: 126 QRSD: 110 QT: 392 QTc: 490 [place]: P: 38 SC: 126 QRS: -42 T: 104 INTERPRETIVE STATEMENTS: Normal sinus rhythm Possible Left atrial enlargement Left axis deviation ST & T wave abnormality, consider lateral ischemia Prolonged QT Abnormal ECG Compared to ECG 07/22/2018 03:24:10 ST (T wave) deviation now present Possible ischemia now present Prolonged QT interval now present Sinus tachycardia no longer present Left ventricular hypertrophy no longer present Electronically Signed On 09-02-18 07:11:21 YARD HAND by Dudley Whatley
--- NOTE | 2018-09-02 11:38 | EKG ---
Test Date: 2018-08-31 Test Time: 06:33:09 Gis Technician: PARIS MEASUREMENT RESULTS: Intervals: Rate: 101 ND: 122 QRSD: 108 QT: 368 QTc: 477 [place]: P: 20 ND: 122 QRS: -41 T: 87 INTERPRETIVE STATEMENTS: Sinus tachycardia Possible Left atrial enlargement Left axis deviation T wave abnormality, consider lateral ischemia Abnormal ECG Compared to ECG 08/31/2018 06:29:23 T-wave abnormality now present Sinus rhythm no longer present ST (T wave) deviation no longer present Prolonged QT interval no longer present Possible ischemia still present Electronically Signed On 09-02-18 11:37:37 ELEMENTARY SECRETARY by Ander Worthington
== END 2018-08-31 09:33 | disposition short-term general hospital (02) ==
LOC: ER 06:26
DX: I50.20 Unspecified systolic (congestive) heart failure (principal); I25.2 Old myocardial infarction; I42.9 Cardiomyopathy, unspecified; Z79.899 Other long term (current) drug therapy; Z95.810 Presence of automatic (implantable) cardiac defibrillator
CPT/HCPCS: 36415; 71046; 80048; 80076; 82550; 82553; 82805; 83690; 83735; 83880; 84484; 85025; 85379; 85610; 85730; 93005 ×2; 94640; 96374; 96375; 99285; J1940; J2405

== ENCOUNTER 2022-04-22 04:28 | Emergency (ER) | payer OTHER ==
[2022-04-22 07:07] LABS: Hematocrit 37.4 % (36.0-45.0); Lymphocytes % 23.3 % (15.3-44.8); MCV 92.1 fL (80-100); MPV 8.9 fL (7.6-11.3); RBC Red Blood Cell Count 4.06 M/uL (3.86-4.86)
[2022-04-22 07:14] LABS: Protime INR 2.37
[2022-04-22 07:39] LABS: ALT/SGPT 27 U/L (12-78); Albumin 3.1 g/dL (3.4-5.0); Alkaline Phosphatase 99 U/L (45-117); BUN Blood Urea Nitrogen 18 mg/dL (7-18); Bicarbonate 23 mmol/L (21-32); Bilirubin Total 0.1 mg/dL (0.2-1.0); Glomerular Filtration Rate 70 ml/min (=/>90); Glucose Level 104 mg/dL (74-106); NT PRO-BNP 1423 pg/mL (<125); Protein, Total 6.7 g/dL (6.4-8.2); Sodium Level 140 mmol/L (136-145); Troponin High Sensitivity 18.1 pg/mL (<58.9)
[2022-04-22 07:40] LABS: AST/SGOT 35 U/L (15-37); Bilirubin Direct < 0.1 mg/dL (0-0.2); Magnesium 2.1 mg/dL (1.8-2.4)
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
[2022-04-22 09:46] LABS: Urine Blood Negative (Negative); Urine Glucose Negative (Negative); Urine Protein Negative (Negative); Urine pH 5.5 (5.0-7.0)
--- NOTE | 2022-04-22 10:34 | RAD REPORT ---
EXAM DESCRIPTION: Channing Single View04/22/2022 7:00 am CLINICAL HISTORY: Chest pain COMPARISON: 2018 FINDINGS: The lungs appear clear of acute infiltrate. The heart is mildly to moderately enlarged. Pacemaker leads in place IMPRESSION: No acute abnormalities displayed
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
[2022-04-22 11:40] VITALS: TEMP 98.3
[2022-04-22 11:42] VITALS: O2SAT 96
[2022-04-22 11:44] VITALS: BP 112/56
--- NOTE | 2022-04-24 12:26 | EKG ---
Test Date: 2022-04-22 Test Time: 08:07:24 [place]: MB MEASUREMENT RESULTS: Intervals: Rate: 66 OR: QRSD: 206 QT: 534 QTc: 559 Reliance: P: OR: QRS: -83 T: 40 INTERPRETIVE STATEMENTS: Ventricular-paced rhythm with frequent AV dual-paced complexes Abnormal ECG Compared to ECG 08/31/2018 06:33:09 Sinus tachycardia no longer present Left-axis deviation no longer present T-wave abnormality no longer present Possible ischemia no longer present Electronically Signed On 04-24-22 12:23:49 CDT by Kushal Hart
== END 2022-04-22 11:14 | disposition home or self-care (01) ==
LOC: ER 04:28
DX: M79.602 Pain in left arm (principal); M79.601 Pain in right arm; R53.1 Weakness; I50.9 Heart failure, unspecified; I25.2 Old myocardial infarction; Z88.3 Allergy status to other anti-infective agents
CPT/HCPCS: 36415; 70450; 71045; 72125; 80048; 80076; 81003; 83735; 83880; 84484; 85025; 85610; 93005; 99284

== ENCOUNTER 2024-02-01 18:52 | Emergency (ER) | payer OTHER ==
[2024-02-01] MEDS ORDERED: NA CHLORIDE 0.9% 1,000 ML ONE (19:18)
[2024-02-01 19:21] LABS: Absolute Basophils 0.1 K/uL (0-0.5); Absolute Eosinophils 0.1 K/uL (0-0.5); Absolute Lymphocytes (CBC) 2.7 K/uL (0.7-4.9); Absolute Monocytes 0.8 K/uL (0.1-1.3); Absolute Neutrophil 3.9 K/uL (1.8-8.0); Eosinophils % 1.5 % (0-4.4); Hematocrit 41.4 % (36.0-45.0); Hemoglobin 14.1 g/dL (12.0-15.0); Lymphocytes % 35.8 % (15.3-44.8); MCH 31.6 pg (27.0-35.0); MPV 9.1 fL (7.6-11.3); Neutrophils % 51.7 % (41.7-73.7); Nucleated Red Blood Cells % 0.1 % (0-0); Platelets 246 thou/uL (152-406); RBC Red Blood Cell Count 4.45 M/uL (3.86-4.86)
[2024-02-01 19:23] LABS: PT Prothrombin Time 16.6 SECONDS (9.5-12.5); Protime INR 1.53
[2024-02-01 19:37] LABS: ALT/SGPT 46 U/L (13-56); AST/SGOT 35 U/L (15-37); Albumin 3.6 g/dL (3.4-5.0); Albumin/Globulin Ratio 0.9 (1.1-1.8); Alkaline Phosphatase 157 U/L (45-117); Anion Gap 7.9 mEq/L (5.0-15.0); BUN Blood Urea Nitrogen 13 mg/dL (7-18); Bicarbonate 23 mEq/L (21-32); Bilirubin Total 0.3 mg/dL (0.2-1.0); Globulin 4.1 g/dL (2.3-3.5); Glomerular Filtration Rate 85 ml/min (=/>90); Glucose Level 88 mg/dL (74-106); Lipase 35 U/L (13-75); Magnesium 2.4 mg/dL (1.6-2.4); NT PRO-BNP 397 pg/mL (<125); Potassium 3.9 mEq/L (3.5-5.1); Protein, Total 7.7 g/dL (6.4-8.2); Sodium Level 136 mEq/L (136-145); Troponin High Sensitivity 10.2 pg/mL (<58.9)
[2024-02-01 19:42] LABS: Bilirubin Direct < 0.2 mg/dL (0-0.2); Bilirubin Indirect, Calculated 0.1 mg/dL (0.2-0.8)
[2024-02-01] MEDS ORDERED: WARFARIN SODIUM 5 MG TAB ONE (19:50)
--- NOTE | 2024-02-01 20:00 | ER ---
Nurse's Notes [facility] Name: Reta Anderson Age: 58 yrs Sex: Female : 1965 Arrival Date: 02/01/2024 Time: 18:52 Bed 2 Private MD: Diagnosis: Chest pain, unspecified-NON -CARDIAC;Adjustment disorder with mixed anxiety and depressed mood;Presence of cardiac pacemaker;group home (current) use of anticoagulants-SUBTHERAPUTIC INR Presentation: 01/31 18:55 Chief complaint: EMS states: Intermittent chest pain that radiates to left arm x 2 hb days. VS WNL, NSR with LBB on 12 lead. Coronavirus screen: At this time, the client does not indicate any symptoms associated with coronavirus-19. Ebola Screen: No symptoms or risks identified at this time. Initial Sepsis Screen: Does the patient meet any 2 criteria? No. Patient's initial sepsis screen is negative. Does the patient have a suspected source of infection? No. Patient's initial sepsis screen is negative. Risk Assessment: Do you want to hurt yourself or someone else? Patient reports no desire to harm self or others. Onset of symptoms was January 31, 2024. 18:55 Method Of Arrival: EMS: [facility] hb 18:55 Acuity: CASSANDRA 2 hb Triage Assessment: 18:57 General: Appears in no apparent distress. Behavior is cooperative, anxious. Pain: Pain hb currently is 4 out of 10 on a pain scale. Neuro: Level of Consciousness is awake, alert, obeys commands, Oriented to person, place, time, situation. Cardiovascular: Patient's skin is warm and dry. Rhythm is regular. Respiratory: Reports shortness of breath at rest Respiratory effort is even, unlabored, Respiratory pattern is regular, symmetrical. Historical: - Allergies: 18:56 Clindamycin; hb - Home Meds: 18:57 Unable to obtain [Active]; hb - PMHx: 18:56 cardiomyopathy; CHF; EF 16%; gastric ulcers; Grand mal seizure; Myocardial infarction; hb pulmonary fibrosis; PVCs; - Immunization history:: Adult Immunizations up to date. - Infectious Disease History:: Denies. - Social history:: Smoking status: Patient denies any tobacco usage or history of. Screenin:05 [facility] ED Fall Risk Assessment (Adult) History of falling in the last 3 months, mb9 including since admission No falls in past 3 months (0 pts) Confusion or Disorientation No (0 pts) Intoxicated or Sedated No (0 pts) Impaired Gait No (0 pts) Mobility Assist Device Used No (0 pt) Altered Elimination No (0 pt) Score/Fall Risk Level 0 - 2 = Low Risk Oriented to surroundings, Maintained a safe environment, Educated pt \T\ family on fall prevention, incl call for assistance when getting out of bed. Abuse screen: Denies threats or abuse. Nutritional screening: No deficits noted. Tuberculosis screening: No symptoms or risk factors identified. Assessment: 19:27 Reassessment: Lab notified of add on digoxin. cm10 20:09 Pain: Pain does not radiate. Pain began suddenly. rv Vital Signs: 18:55 BP 150 / 73; Pulse 84; Resp 15; Temp 98.3; Pulse Ox 97% on R/A; Weight 90.72 kg; Height hb 5 ft. 7 in. ; Pain 4/10; 19:42 BP 124 / 62; Pulse 63; Resp 16; Pulse Ox 96% on R/A; rv 18:55 Body Mass Index 31.32 (90.72 kg, 170.18 cm) hb 18:55 Pain Scale: Adult hb ED Course: 18:54 Patient arrived in ED. hb 18:56 Triage completed. hb 18:58 Clifton Whiteside MD is Attending Physician. kristan 18:58 Arm band placed on. hb 19:05 Colin Resendez, STEVEN is Primary Nurse. rv 19:05 Placed in gown. Bed in low position. Call light in reach. Side rails up X 1. Provided mb9 Education on: press call light if needing anything. Client placed on continuous cardiac and pulse oximetry monitoring. NIBP monitoring applied. quality assurance monitor final on. 19:05 EKG done, by ED staff, reviewed by Clifton Whiteside MD. Inserted saline lock: 22 gauge in mb9 left forearm, using aseptic technique. Blood collected. 19:05 No provider procedures requiring assistance completed. mb9 20:00 Kushal Hart MD is Referral Physician. kristan 20:01 XRAY Chest (1 view) In Process Unspecified. EDMS 20:09 IV discontinued, intact, bleeding controlled, No redness/swelling at site. Pressure rv dressing applied. Administered Medications: 19:28 Drug: NS 0.9% IV 1000 ml IV at 75 ml/hr continuous Route: IV; Rate: 75 ml/hr; Site: rv left forearm; 20:09 Follow up: IV Status: Order to discontinue infusion rv 19:54 Drug: Warfarin PO 10 mg PO once Route: PO; rv 20:09 Follow up: Response: Medication administered at discharge. rv Medication: 19:05 VIS not applicable for this client. mb9 Outcome: 20:00 Discharge ordered by MD. rushing 20:09 Discharged to home ambulatory, rv 20: Condition: good 20:09 Discharge instructions given to patient, Instructed on discharge instructions, follow up and referral plans. Demonstrated understanding of instructions, follow-up care, 20:09 Patient left the ED. rv Signatures: Dispatcher [employer] EDMS Clifton Whiteside MD MD cha Baxter, Heather, RN Colin Quiñones RN RN rv Breneman, Mary Beth, RN RN mb9 Rosaline Scott RN RN cm10
--- NOTE | 2024-02-01 20:01 | EDPHYS ---
Physician Documentation [facility] Name: Reta Anderson Age: 58 yrs Sex: Female : 1965 Arrival Date: 02/01/2024 Time: 18:52 Bed 2 Private MD: ED Physician Clifton Whiteside HPI: 01/31 19:29 This 58 yrs old Female presents to ER via EMS with complaints of Chest Pain. kristan 19:29 The patient or guardian reports chest pain that is located primarily in the anterior kristan chest wall, bilaterally. Onset: yesterday. The pain radiates to the left arm. Associated signs and symptoms: Pertinent positives: WAS UPSET , LAST CATH NO DISEASE. The chest pain is described as aching. Modifying factors: The symptoms are alleviated by nothing. the symptoms are aggravated by emotionally stressful situations. Severity of pain: At its worst the pain was mild in the emergency department the pain has improved mildly. The patient has experienced similar episodes in the past, several times. Historical: - Allergies: 18:56 Clindamycin; hb - Home Meds: 18:57 Unable to obtain [Active]; hb - PMHx: 18:56 cardiomyopathy; CHF; EF 16%; gastric ulcers; Grand mal seizure; Myocardial infarction; hb pulmonary fibrosis; PVCs; - Immunization history:: Adult Immunizations up to date. - Infectious Disease History:: Denies. - Social history:: Smoking status: Patient denies any tobacco usage or history of. ROS: 19:31 Constitutional: Negative for fever, chills, and weight loss, Eyes: Negative for injury, kristan pain, redness, and discharge, ENT: Negative for injury, pain, and discharge, Neck: Negative for injury, pain, and swelling, Respiratory: Negative for shortness of breath, cough, wheezing, and pleuritic chest pain, Abdomen/GI: Negative for abdominal pain, nausea, vomiting, diarrhea, and constipation, Back: Negative for injury and pain, : Negative for injury, bleeding, discharge, and swelling, MS/Extremity: Negative for injury and deformity, Skin: Negative for injury, rash, and discoloration, Neuro: Negative for headache, weakness, numbness, tingling, and seizure, Psych: Negative for depression, anxiety, suicide ideation, homicidal ideation, and hallucinations, Exam: 19:31 Constitutional: This is a well developed, well nourished patient who is awake, alert, kristan and in no acute distress. Head/Face: Normocephalic, atraumatic. Eyes: Pupils equal round and reactive to light, extra-ocular motions intact. Lids and lashes normal. Conjunctiva and sclera are non-icteric and not injected. Cornea within normal limits. Periorbital areas with no swelling, redness, or edema. ENT: Nares patent. No nasal discharge, no septal abnormalities noted. Tympanic membranes are normal and external auditory canals are clear. Oropharynx with no redness, swelling, or masses, exudates, or evidence of obstruction, uvula midline. Mucous membranes moist. Neck: Trachea midline, no thyromegaly or masses palpated, and no cervical lymphadenopathy. Supple, full range of motion without nuchal rigidity, or vertebral point tenderness. No Meningismus. Chest/axilla: Normal chest wall appearance and motion. Nontender with no deformity. No lesions are appreciated. Cardiovascular: Regular rate and rhythm with a normal S1 and S2. No gallops, murmurs, or rubs. Normal PMI, no JVD. No pulse deficits. Respiratory: Lungs have equal breath sounds bilaterally, clear to auscultation and percussion. No rales, rhonchi or wheezes noted. No increased work of breathing, no retractions or nasal flaring. Abdomen/GI: Soft, non-tender, with normal bowel sounds. No distension or tympany. No guarding or rebound. No evidence of tenderness throughout. Back: No spinal tenderness. No costovertebral tenderness. Full range of motion. Skin: Warm, dry with normal turgor. Normal color with no rashes, no lesions, and no evidence of cellulitis. MS/ Extremity: Pulses equal, no cyanosis. Neurovascular intact. Full, normal range of motion. Neuro: Awake and alert, GCS 15, oriented to person, place, time, and situation. Cranial nerves II-XII grossly intact. Motor strength 5/5 in all extremities. Sensory grossly intact. Cerebellar exam normal. Normal gait. Psych: Awake, alert, with orientation to person, place and time. Behavior, mood, and affect are within normal limits. 19:31 ECG was reviewed by the Attending Physician. Vital Signs: 18:55 BP 150 / 73; Pulse 84; Resp 15; Temp 98.3; Pulse Ox 97% on R/A; Weight 90.72 kg; Height hb 5 ft. 7 in. ; Pain 4/10; 19:42 BP 124 / 62; Pulse 63; Resp 16; Pulse Ox 96% on R/A; rv 18:55 Body Mass Index 31.32 (90.72 kg, 170.18 cm) hb 18:55 Pain Scale: Adult hb MDM: 18:58 Patient medically screened. kristan 19:34 Differential diagnosis: abnormal EKG, acute myocardial infarction, acute pericarditis, kristan anxiety, chest wall pain, costochondritis, esophagitis, pancreatitis, peptic ulcer disease, pleurisy, pneumonia, pneumothorax, pulmonary embolus, stable angina, thoracic aortic disection. HEART Score: History: Slightly Suspicious (0), ECG: Non specific repolarization disturbance / LBTB / PM (1), Age: > 45 and < 65 years (1), Risk Factors: > or = 3 Risk factors for atherosclerotic disease (2), [Hypercholesterolemia] [Hypertension] [+ Family HX] [Obesity] Troponin: < or = 1 x Normal Limit (0). The patient was not given aspirin in the Emergency Department. Not indicated due to patient's past medical history. SHY Risk Score: 1 - Three or more CAD risk factors, TOTAL SCORE = 1. Data reviewed: vital signs, nurses notes, EMS record, lab test result(s), EKG, radiologic studies, plain films. Consideration of Admission/Observation Escalation of care including admission/observation considered. I considered the following discharge prescriptions or medication management in the emergency department Medications were administered in the Emergency Department. See MAR. Independent interpretation of the following test(s) in the Emergency Department EKG: See my EKG interpretation above. Test considered but Not performed: Ultrasound NO 2 D ECHO. Historians other than the Patient: PT WELL INFORMED. Care significantly affected by the following chronic conditions: Obesity, PULMONARY FIBROSIS, CHF, CARDIOMYOPATHY, GASTRIC ULCERS. Counseling: I had a detailed discussion with the patient and/or guardian regarding the historical points, exam findings, and any diagnostic results supporting the discharge/admit diagnosis, the presence of at least one elevated blood pressure reading (>120/80) during this emergency department visit, lab results, radiology results, the need for outpatient follow up, for definitive care, a metalizing supervisor, a family practitioner. 20:01 ED course: PT HAS COUMADIN , TAKES DAILY, LOW VIT K DIET EXPLAINED, MUST CHECK INR. [facility] 01/31 18:59 Order name: Basic Metabolic Panel; Complete Time: 19:47 [facility] 01/31 18:59 Order name: CBC with Diff; Complete Time: 19:47 [facility] 01/31 18:59 Order name: LFT's; Complete Time: 19:47 [facility] 01/31 18:59 Order name: Magnesium; Complete Time: 19:47 [facility] 01/31 18:59 Order name: NT PRO-BNP; Complete Time: 19:47 [facility] 01/31 18:59 Order name: PT-INR; Complete Time: 19:47 [facility] 01/31 18:59 Order name: Troponin HS; Complete Time: 19:47 [facility] 01/31 18:59 Order name: Lipase; Complete Time: 19:47 [facility] 01/31 19:27 Order name: Digoxin cm 01/31 18:59 Order name: XRAY Chest (1 view) [facility] 01/31 18:59 Order name: Cardiac monitoring; Complete Time: 19:04 [facility] 01/31 18:59 Order name: EKG - Nurse/Tech; Complete Time: 19:04 [facility] 01/31 18:59 Order name: IV Saline Lock; Complete Time: 19:04 [facility] 01/31 18:59 Order name: Labs collected and sent; Complete Time: 19:04 [facility] 01/31 18:59 Order name: O2 Per Protocol; Complete Time: 19:04 [facility] 01/31 18:59 Order name: O2 Sat Monitoring; Complete Time: 19:04 [facility] EC:31 Rate is 61 beats/min. Rhythm is regular. QRS [place] is Normal. [place] interval is normal. QRS kristan interval is normal. QT interval is normal. No Q waves. T waves are Normal. No ST changes noted. Clinical impression: NSR w/ Non-specific ST/T Changes and No evidence of ischemia. Reviewed by me. Administered Medications: 19:28 Drug: NS 0.9% IV 1000 ml IV at 75 ml/hr continuous Route: IV; Rate: 75 ml/hr; Site: rv left forearm; 20:09 Follow up: IV Status: Order to discontinue infusion rv 19:54 Drug: Warfarin PO 10 mg PO once Route: PO; rv 20:09 Follow up: Response: Medication administered at discharge. 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(02/01/24 20:01) kristan Followup: kristan - With: Private Physician - When: 2 - 3 days - Reason: Recheck today's complaints, Continuance of care, Re-evaluation by your physician Followup: kristan - With: Kushal Hart MD - When: 2 - 3 days - Reason: Recheck today's complaints, Re-evaluation by your physician Discharge Instructions: - Discharge Summary Sheet kristan - Adjustment Disorder, Adult kristan - Nonspecific Chest Pain, Adult kristan - Warfarin Coagulopathy kristan - Nonspecific Chest Pain, Adult, [id number] kristan Forms: - Medication Reconciliation Form kristan - Antibiotic Education kristan - Prescription Opioid Use kristan - Patient Portal Instructions kristan - Leadership Thank You Letter kristan Signatures: Dispatcher [employer] [facility] Clifton Whiteside MD MD cha Baxter, Heather, STEVEN RN Colin Resendez RN RN rv Corrections: (The following items were deleted from the chart) 19:00 19:00 BASIC METABOLIC PANEL+C.LAB[facility]. [facility]:00 CBC+H.LAB.BRZ ordered. [facility] 19:00 19:00 HEPATIC FUNCTION+C.LAB.BRZ ordered. [facility] 19:00 19:00 MAGNESIUM+C.LAB.BRZ ordered. [facility] 19:00 19:00 PROBNP+C.LAB.BRZ [facility]. [facility] 19:00 PROTIME (+INR)+COAG.LAB.BRZ ordered. [facility] 19:00 19:00 Troponin High Sensitivity+C.LAB.BR[facility]. [facility] 19:00 LIPASE+C.LAB.BRZ ordered. [facility] 19:00 19:00 Urinalysis+U.LAB.BRZ ordered. [facility] 19:00 Chest Single View+RAD.RAD.BRZ ordered. 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
--- NOTE | 2024-02-01 20:21 | RAD REPORT ---
EXAM DESCRIPTION: [place] Single View02/01/2024 7:59 pm CLINICAL HISTORY: Chest pain COMPARISON: 2021 FINDINGS: The lungs appear clear of acute infiltrate. The heart is mildly to moderately enlarged. P acemaker leads in place IMPRESSION: No acute abnormalities displayed
[2024-02-01 20:34] VITALS: BP 124/62; TEMP 98.3; O2SAT 96
--- NOTE | 2024-02-04 13:25 | EKG ---
Test Date: 2024-02-01 Test Time: 19:03:15 Sterilizer Operator: MB MEASUREMENT RESULTS: Intervals: Rate: 61 MD: 158 QRSD: 116 QT: 428 QTc: 430 [place]: P: 21 MD: 158 QRS: -28 T: 64 INTERPRETIVE STATEMENTS: Suspect unspecified pacemaker failure Normal sinus rhythm Left ventricular hypertrophy with QRS widening and repolarization abnormality Abnormal ECG Compared to ECG 04/22/2022 08:07:24 Left ventricular hypertrophy now present Early repolarization now present Ventricular-paced complex(es) or rhythm no longer present AV dual-paced complex(es) or rhythm no longer present Electronically Signed On 02-04-24 13:18:30 CDT by Kushal Hart
== END 2024-02-01 20:09 | disposition home or self-care (01) ==
LOC: ER 18:52
DX: R07.89 Other chest pain (principal); F43.23 Adjustment disorder with mixed anxiety and depressed mood; Z95.0 Presence of cardiac pacemaker; R79.1 Abnormal coagulation profile; Z79.01 Long term (current) use of anticoagulants; I50.9 Heart failure, unspecified; Z88.3 Allergy status to other anti-infective agents
CPT/HCPCS: 85025; 80048; 36415; 83735; 85610; 80162; 80076; 84484; 83690; 83880; 71045; 96360; 99285; J7030; 93005